=== PATIENT | male | born 1965 | race Caucasian/White ===

== ENCOUNTER 2018-02-03 17:44 | Inpatient (IN) | payer OTHER ==
[2018-02-03] VITALS (7 sets, daily range): BP systolic 121; BP diastolic 79; PULSE 82–97; RESP 20; TEMP 99.7; O2SAT 94–100
[~2018-02-03] VITALS: Ht 182.9 cm; Wt 102.0 kg
[~2018-02-03 17:44] MED LIST: SUCCINYLCHOLINE CHLORIDE 100 MG/5 ML SYRINGE IV PUSH ONE
[2018-02-03] MEDS ORDERED: PROPOFOL 1000 MG/100 ML INJ 100 ML ONE (17:52)
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
[2018-02-03 18:15] LABS: AUTOMATED NEUTROPHIL # 7.6 TH/MM3 (1.8-7.7); BASOPHIL # 0.1 TH/MM3 (0-0.2); BASOPHIL % 0.4 % (0.0-2.0); EOSINOPHIL # 0.3 TH/MM3 (0-0.4); EOSINOPHIL % 1.7 % (0.0-4.0); HEMOGLOBIN 15.7 GM/DL (13.0-17.0); LYMPH % 42.2 % (9.0-44.0); LYMPHOCYTE # 6.5 TH/MM3 (1.0-4.8); MEAN CELL VOLUME 88.6 FL (80.0-100.0); MEAN CORPUSCULAR HEMOGLOBIN 31.5 PG (27.0-34.0); MEAN CORPUSCULAR HGB CONC 35.5 % (32.0-36.0); MONO % 5.7 % (0.0-8.0); MONOCYTE # 0.9 TH/MM3 (0-0.9); PLATELET COUNT 249 TH/MM3 (150-450); RED BLOOD COUNT 4.97 MIL/MM3 (4.50-5.90); RED CELL DISTRIBUTION WIDTH 13.2 % (11.6-17.2); WHITE BLOOD COUNT 15.3 TH/MM3 (4.0-11.0)
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
[2018-02-03] MEDS: LACTATED RINGER'S 1000 ML INJ 1,000 ML IV SCH (18:25)
[2018-02-03] MEDS ORDERED: IOHEXOL 350 MG/ML 10 ML VIAL (for RAD DIAG) IVCONTRAST ONE (18:26)
[2018-02-03] MEDS ORDERED: CHLORHEXIDINE GLUCONATE 2 % 1 PACK (2 CLOTHS) TOP PRN (18:30)
[2018-02-03] MEDS ORDERED: ONDANSETRON HCL 4 MG/2 ML VIAL IV PUSH PRN (18:30)
[2018-02-03] MEDS ORDERED: SODIUM CHLORIDE 0.9% FLUSH 10 ML FLUSH IV FLUSH PRN (18:30)
[2018-02-03] MEDS ORDERED: NURSING INFORMATION XX SCH (18:30)
[2018-02-03] MEDS ORDERED: PROPOFOL 1000 MG/100 ML INJ 100 ML IV PRN (18:30)
[2018-02-03] MEDS ORDERED: fentaNYL DRIP 250 ML IV PRN (18:30)
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
[2018-02-03 18:31] LABS: PROTHROMBIN TIME - PATIENT 9.8 SEC (9.8-11.6)
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
[2018-02-03] MEDS: PROPOFOL 1000 MG/100 ML INJ 100 ML IV PRN ×2 (19:00→21:23)
[2018-02-03] MEDS: fentaNYL DRIP 250 ML IV PRN (20:00)
[2018-02-03 20:42] LABS: BANDS 1 % (0-6); LYMPHOCYTES 47 % (9-44); MONOCYTES 4 % (0-8); NEUTROPHIL # MANUAL DIFF 7.2 TH/MM3 (1.8-7.7); POLYS (SEG NEUTROPHILS) 45 % (16-70); PROMYELOCYTES 1 % (0-0)
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
[2018-02-03] MEDS: DOCUSATE SODIUM 100 MG CAP PO SCH (21:00)
[2018-02-03] MEDS: MIDAZOLAM 100 MG/NS 100 ML DRIP Premix IV PRN (22:32)
[2018-02-04] VITALS (16 sets, daily range): BP systolic 96–135; BP diastolic 63–86; PULSE 68–81; RESP 22; TEMP 99.7–100.9; O2SAT 93–100
[2018-02-04] MEDS: PROPOFOL 1000 MG/100 ML INJ 100 ML IV PRN ×8 (00:23→23:23)
[2018-02-04] MEDS: LACTATED RINGER'S 1000 ML INJ 1,000 ML IV SCH ×3 (02:25→18:53)
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
[2018-02-04] MEDS: CHLORHEXIDINE GLUCONATE 2 % 1 PACK (2 CLOTHS) TOP SCH (04:00)
[2018-02-04] MEDS: fentaNYL DRIP 250 ML IV PRN ×3 (04:44→21:39)
[2018-02-04 06:35] LABS: AUTOMATED NEUTROPHIL # 7.1 TH/MM3 (1.8-7.7); BASOPHIL # 0.1 TH/MM3 (0-0.2); BASOPHIL % 0.6 % (0.0-2.0); EOSINOPHIL # 0.1 TH/MM3 (0-0.4); HEMATOCRIT 39.6 % (39.0-51.0); LYMPH % 29.3 % (9.0-44.0); LYMPHOCYTE # 3.5 TH/MM3 (1.0-4.8); MEAN CELL VOLUME 87.4 FL (80.0-100.0); MEAN CORPUSCULAR HEMOGLOBIN 30.8 PG (27.0-34.0); MEAN CORPUSCULAR HGB CONC 35.3 % (32.0-36.0); MONO % 9.1 % (0.0-8.0); MONOCYTE # 1.1 TH/MM3 (0-0.9); PLATELET COUNT 200 TH/MM3 (150-450); RED BLOOD COUNT 4.53 MIL/MM3 (4.50-5.90); RED CELL DISTRIBUTION WIDTH 12.9 % (11.6-17.2); WHITE BLOOD COUNT 11.9 TH/MM3 (4.0-11.0)
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
[2018-02-04] MEDS ORDERED: POTASSIUM CHLOR 40 MEQ PREMIX 100 ML IV PRN ×2 (07:00)
[2018-02-04] MEDS ORDERED: MAGNESIUM SULFATE INJ 2 GM in SODIUM CHLORIDE 0.9% INJ 96 ML IV PRN (07:00)
[2018-02-04] MEDS ORDERED: POTASSIUM PHOSPHATE MONOBASIC 500 MG TAB PO PRN (07:00)
[2018-02-04] MEDS ORDERED: POTASSIUM PHOSPHATE MONOBASIC 500 MG TAB PO/TUBE PRN (07:00)
[2018-02-04] MEDS ORDERED: MAGNESIUM OXIDE 400 MG TAB PO PRN (07:00)
[2018-02-04] MEDS ORDERED: MAGNESIUM SULFATE INJ 4 GM in SODIUM CHLORIDE 0.9% INJ 92 ML IV PRN (07:00)
[2018-02-04] MEDS ORDERED: POTASSIUM CHLORIDE 25 MEQ EFFERVESCENT TAB PO PRN ×2 (07:00)
[2018-02-04 07:35] LABS: BICARBONATE 17.5 MEQ/L (21.0-32.0); CREATININE 1.1 MG/DL (0.60-1.30)
[2018-02-04 07:37] LABS: CALCIUM 7.3 MG/DL (8.5-10.1)
[2018-02-04] MEDS: CHLORHEXIDINE 0.12% (ORAL KIT) 15 ML CUP MT SCH ×2 (08:00→20:00)
[2018-02-04 08:29] LABS: CALCIUM-PROTEIN CORRECTED 7.7 MG/DL (8.5-10.1); TOTAL PROTEIN 6.4 GM/DL (6.4-8.2)
[2018-02-04] MEDS ORDERED: GLUCAGON 1 MG/ML VIAL OTHER PRN (08:45)
[2018-02-04] MEDS ORDERED: DEXTROSE 50% IN WATER 50 ML SYRINGE IV PUSH PRN (08:45)
[2018-02-04] MEDS: DOCUSATE SODIUM 100 MG CAP PO SCH (09:00)
--- NOTE | 2018-02-04 09:16 | RADRPT ---
EXAM DATE/TIME: 02/04/2018 08:56 [facility] COMPARISON: CT ABDOMEN & PELVIS W CONTRAST, February 03, 2018, 18:12. CT BRAIN W/O CONTRAST, February 03, 2018, 18:01. INDICATIONS : Follow up intracerebral hemorrhage RADIATION DOSE: 50.21 CTDIvol (mGy) MEDICAL HISTORY : Non-responsive. SURGICAL HISTORY : Non-responsive. ENCOUNTER: Subsequent ACUITY: 2 days PAIN SCALE: Non-responsive LOCATION: cranial TECHNIQUE: Multiple contiguous axial images were obtained of the head. Using automated exposure control and adj ustment of the mA and/or kV according to patient size, radiation dose was kept as low as reasonably a chievable to obtain optimal diagnostic quality images. DICOM format image data is available electro nically for review and comparison. FINDINGS: CEREBRUM: The ventricles are normal in size and configuration. The previously suspected area of punctate hemorr chitra within the right temporal region is not evident on today's examination. No significant extra-axi al fluid collections are seen. No mass lesion is identified. POSTERIOR FOSSA: The cerebellum and brainstem are intact. The 4th ventricle is midline. The cerebellopontine angle i s unremarkable. EXTRACRANIAL: The visualized portion of the orbits is intact. There is fluid filling the maxillary sinus on the rig ht. There are fractures involving the right zygoma, the posterior wall of the right maxillary sinus a nd greater wing of the sphenoid on the right. SKULL: The calvaria is intact. No evidence of skull fracture. CONCLUSION: 1. No acute intracranial hemorrhage identified on today's examination. 2. Fractures involving the right zygoma, the right maxillary sinus and greater wing of the sphenoid o n the right. There is fluid within the maxillary sinus on the right. Tiago Hartley MD on February 04, 2018 at 9:11 Board Certified Radiologist. This report was verified electronically.
[2018-02-04] MEDS ORDERED: FUROSEMIDE 20 MG/2 ML VIAL IV PUSH ONE (10:00)
[2018-02-04] MEDS ORDERED: FUROSEMIDE 40 MG/4 ML VIAL IV PUSH ONE (10:00)
[2018-02-04] MEDS: FAMOTIDINE 20 MG TAB PO SCH ×2 (10:16→21:09)
[2018-02-04] MEDS: LIDOCAINE HCL 5% PATCH T-DERMAL SCH (10:17)
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
[2018-02-04] MEDS: INSULIN ASPART SUPPLEMENTAL SCALE SQ SCH ×2 (12:00→17:59)
[2018-02-04] MEDS: BACITRACIN TOP OINT 15 GM TUBE TOPICAL SCH ×2 (13:00→21:09)
[2018-02-04] MEDS: METHOCARBAMOL 500 MG TAB PO SCH ×2 (13:04→21:09)
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
[2018-02-04] MEDS: RESP: ALBUTEROL 2.5 MG/IPRATROPIUM 0.5 MG NEB (SCH) NEB ×3 (16:48→21:09)
[2018-02-04] MEDS: MIDAZOLAM 100 MG/NS 100 ML DRIP Premix IV PRN (18:54)
[2018-02-04] MEDS: REMOVE OLD LIDOCAINE PATCH T-DERMAL SCH (21:00)
[2018-02-04] MEDS: DOCUSATE SODIUM 100 MG/10 ML UDC PO SCH (21:09)
[2018-02-04] MEDS: ENALAPRILAT 1.25 MG/ML VIAL IV PUSH PRN (22:15)
[2018-02-04] MEDS: ACETAMINOPHEN 650 MG/20.3 ML UDC PO PRN (23:24)
[2018-02-05] VITALS (17 sets, daily range): BP systolic 96–150; BP diastolic 55–78; PULSE 60–82; RESP 22; TEMP 99.3–101.1; O2SAT 91–100
[2018-02-05] MEDS: LACTATED RINGER'S 1000 ML INJ 1,000 ML IV SCH ×2 (02:25→11:05)
[2018-02-05] MEDS: PROPOFOL 1000 MG/100 ML INJ 100 ML IV PRN ×6 (02:37→22:14)
[2018-02-05] MEDS: CHLORHEXIDINE GLUCONATE 2 % 1 PACK (2 CLOTHS) TOP SCH (04:00)
[2018-02-05] MEDS: RESP: ALBUTEROL 2.5 MG/IPRATROPIUM 0.5 MG NEB (SCH) NEB ×4 (04:13→21:07)
--- NOTE | 2018-02-05 04:54 | RADRPT ---
EXAM DATE/TIME: 02/05/2018 03:59 [facility] COMPARISON: CHEST SINGLE AP, February 04, 2018, 5:41. INDICATIONS : Shortness of breath. MEDICAL HISTORY : None. SURGICAL HISTORY : None. ENCOUNTER: Subsequent ACUITY: 3 days PAIN SCORE: Non-responsive. LOCATION: chest FINDINGS: Single AP view of the chest. Nasogastric tube and endotracheal tube remain in place. Medial left lung base consolidation versus atelectasis and patchy right lung base opacity slightly increased. Small l eft pleural effusion. Cardiomediastinal silhouette unchanged. CONCLUSION: Slight increase in left greater than right lower lung zone opacity. Differential diagnosis is consoli dation versus atelectasis. Oliver Dougherty MD on February 05, 2018 at 4:50 Board Certified Radiologist. This report was verified electronically.
[2018-02-05 05:24] LABS: AUTOMATED NEUTROPHIL # 8.8 TH/MM3 (1.8-7.7); BASOPHIL % 0.3 % (0.0-2.0); EOSINOPHIL # 0.1 TH/MM3 (0-0.4); EOSINOPHIL % 1.1 % (0.0-4.0); HEMATOCRIT 36.1 % (39.0-51.0); HEMOGLOBIN 12.7 GM/DL (13.0-17.0); LYMPH % 20.9 % (9.0-44.0); LYMPHOCYTE # 2.7 TH/MM3 (1.0-4.8); MEAN CELL VOLUME 87.5 FL (80.0-100.0); MEAN CORPUSCULAR HEMOGLOBIN 30.8 PG (27.0-34.0); MEAN CORPUSCULAR HGB CONC 35.2 % (32.0-36.0); MEAN PLATELET VOLUME 9.1 FL (7.0-11.0); MONO % 9.5 % (0.0-8.0); MONOCYTE # 1.2 TH/MM3 (0-0.9); NEUT % 68.2 % (16.0-70.0); PLATELET COUNT 160 TH/MM3 (150-450); RED BLOOD COUNT 4.12 MIL/MM3 (4.50-5.90); RED CELL DISTRIBUTION WIDTH 13.2 % (11.6-17.2); WHITE BLOOD COUNT 12.9 TH/MM3 (4.0-11.0)
[2018-02-05] MEDS: METHOCARBAMOL 500 MG TAB PO SCH ×3 (05:51→21:19)
[2018-02-05 08:09] LABS: ALBUMIN 2.6 GM/DL (3.4-5.0); BICARBONATE 22.7 MEQ/L (21.0-32.0); CALCIUM 7.2 MG/DL (8.5-10.1); CALCIUM-PROTEIN CORRECTED 7.9 MG/DL (8.5-10.1); CREATININE 1.27 MG/DL (0.60-1.30); TOTAL BILIRUBIN ADULT 0.8 MG/DL (0.2-1.0); TOTAL PROTEIN 5.8 GM/DL (6.4-8.2)
[2018-02-05] MEDS: fentaNYL DRIP 250 ML IV PRN (08:40)
[2018-02-05] MEDS: SODIUM PHOSPHATE INJ 30 MMOL in SODIUM CHLOR 0.9% 250 ML INJ 240 ML IV PRN (08:41)
[2018-02-05] MEDS: BACITRACIN TOP OINT 15 GM TUBE TOPICAL SCH ×2 (08:42→20:03)
[2018-02-05] MEDS: CHLORHEXIDINE 0.12% (ORAL KIT) 15 ML CUP MT SCH ×2 (08:42→19:46)
[2018-02-05] MEDS: FAMOTIDINE 20 MG TAB PO SCH ×2 (08:53→20:02)
[2018-02-05] MEDS: DOCUSATE SODIUM 100 MG/10 ML UDC PO SCH ×2 (08:53→20:02)
[2018-02-05] MEDS: LIDOCAINE HCL 5% PATCH T-DERMAL SCH (08:53)
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
[2018-02-05] MEDS: INSULIN ASPART SUPPLEMENTAL SCALE SQ SCH ×5 (11:42→23:33)
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
[2018-02-05] MEDS: ACETAMINOPHEN 650 MG/20.3 ML UDC PO PRN (15:44)
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
[2018-02-05] MEDS: POTASSIUM CHLOR 20 MEQ PREMIX 100 ML IV PRN (18:52)
[2018-02-05] MEDS: REMOVE OLD LIDOCAINE PATCH T-DERMAL SCH (20:05)
[2018-02-05] MEDS ORDERED: FUROSEMIDE 20 MG/2 ML VIAL IV PUSH ONE (21:30)
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
[2018-02-06] VITALS (16 sets, daily range): BP systolic 119–148; BP diastolic 57–72; PULSE 58–69; RESP 22; TEMP 99.3–100.8; O2SAT 94–100
[2018-02-06] MEDS: PROPOFOL 1000 MG/100 ML INJ 100 ML IV PRN ×7 (00:30→20:30)
[2018-02-06] MEDS: fentaNYL DRIP 250 ML IV PRN ×3 (02:08→20:30)
[2018-02-06] MEDS: CHLORHEXIDINE GLUCONATE 2 % 1 PACK (2 CLOTHS) TOP SCH (03:04)
[2018-02-06] MEDS: RESP: ALBUTEROL 2.5 MG/IPRATROPIUM 0.5 MG NEB (SCH) NEB ×4 (03:28→20:05)
[2018-02-06 05:07] LABS: AUTOMATED NEUTROPHIL # 9.4 TH/MM3 (1.8-7.7); BASOPHIL % 0.3 % (0.0-2.0); EOSINOPHIL # 0.1 TH/MM3 (0-0.4); EOSINOPHIL % 0.6 % (0.0-4.0); HEMATOCRIT 34.8 % (39.0-51.0); LYMPHOCYTE # 1.7 TH/MM3 (1.0-4.8); MEAN CELL VOLUME 87.7 FL (80.0-100.0); MEAN CORPUSCULAR HEMOGLOBIN 30.3 PG (27.0-34.0); MEAN CORPUSCULAR HGB CONC 34.5 % (32.0-36.0); MEAN PLATELET VOLUME 9.1 FL (7.0-11.0); MONO % 8.1 % (0.0-8.0); PLATELET COUNT 154 TH/MM3 (150-450); RED BLOOD COUNT 3.97 MIL/MM3 (4.50-5.90); RED CELL DISTRIBUTION WIDTH 13.4 % (11.6-17.2); WHITE BLOOD COUNT 12.3 TH/MM3 (4.0-11.0)
[2018-02-06 05:17] LABS: ALBUMIN 2.5 GM/DL (3.4-5.0); AST (GOT) 138 U/L (15-37); BICARBONATE 27.6 MEQ/L (21.0-32.0); BLOOD UREA NITROGEN 9 MG/DL (7-18); CALCIUM 7.5 MG/DL (8.5-10.1); CHLORIDE 102 MEQ/L (98-107); CREATININE 1.17 MG/DL (0.60-1.30); GLOMERULAR FILTRATION RATE 65 ML/MIN (>89); GLUCOSE,RANDOM 172 MG/DL (74-106); MAGNESIUM 1.6 MG/DL (1.5-2.5); SODIUM (NA) 137 MEQ/L (136-145)
[2018-02-06 05:20] LABS: ALKALINE PHOSPHATASE 131 U/L (45-117); PHOSPHORUS 2.4 MG/DL (2.5-4.9); TOTAL BILIRUBIN ADULT 1.4 MG/DL (0.2-1.0); TOTAL PROTEIN 6.4 GM/DL (6.4-8.2)
[2018-02-06 05:25] LABS: ALT (GPT) 94 U/L (12-78)
[2018-02-06] MEDS: METHOCARBAMOL 500 MG TAB PO SCH ×3 (05:32→21:33)
[2018-02-06] MEDS: INSULIN ASPART SUPPLEMENTAL SCALE SQ SCH ×3 (06:05→16:46)
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
[2018-02-06] MEDS: CHLORHEXIDINE 0.12% (ORAL KIT) 15 ML CUP MT SCH ×2 (07:29→20:27)
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
[2018-02-06] MEDS: LIDOCAINE HCL 5% PATCH T-DERMAL SCH (07:56)
[2018-02-06] MEDS: FAMOTIDINE 20 MG TAB PO SCH ×2 (07:56→21:32)
[2018-02-06] MEDS: DOCUSATE SODIUM 100 MG/10 ML UDC PO SCH ×2 (07:56→21:33)
[2018-02-06] MEDS: BACITRACIN TOP OINT 15 GM TUBE TOPICAL SCH ×2 (07:56→21:33)
[2018-02-06] MEDS: POTASSIUM CHLOR 20 MEQ PREMIX 100 ML IV PRN (07:57)
[2018-02-06] MEDS: POTASSIUM PHOSPHATE INJ 30 MMOL in SODIUM CHLOR 0.9% 250 ML INJ 250 ML IV PRN (08:02)
[2018-02-06] MEDS: LACTATED RINGER'S 1000 ML INJ 1,000 ML IV SCH (10:46)
[2018-02-06] MEDS: ENOXAPARIN SODIUM 40 MG/0.4 ML SYRINGE SQ SCH (12:13)
[2018-02-06] MEDS: ACETAMINOPHEN 650 MG/20.3 ML UDC PO PRN (14:07)
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
[2018-02-06 19:24] LABS: MAGNESIUM 2.1 MG/DL (1.5-2.5); PHOSPHORUS 2.1 MG/DL (2.5-4.9)
[2018-02-06] MEDS: SODIUM PHOSPHATE INJ 30 MMOL in SODIUM CHLOR 0.9% 250 ML INJ 240 ML IV PRN (20:54)
[2018-02-06] MEDS: REMOVE OLD LIDOCAINE PATCH T-DERMAL SCH (21:00)
[2018-02-07] VITALS (17 sets, daily range): BP systolic 104–150; BP diastolic 57–82; PULSE 57–78; RESP 22; TEMP 99.5–101.1; O2SAT 92–99
[2018-02-07] MEDS: INSULIN ASPART SUPPLEMENTAL SCALE SQ SCH ×5 (00:05→23:41)
[2018-02-07] MEDS: PROPOFOL 1000 MG/100 ML INJ 100 ML IV PRN ×7 (00:06→17:34)
[2018-02-07] MEDS: CHLORHEXIDINE GLUCONATE 2 % 1 PACK (2 CLOTHS) TOP SCH ×2 (03:21→19:59)
[2018-02-07] MEDS: RESP: ALBUTEROL 2.5 MG/IPRATROPIUM 0.5 MG NEB (SCH) NEB ×4 (03:36→19:51)
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
[2018-02-07] MEDS: REMOVE OLD LIDOCAINE PATCH T-DERMAL SCH ×2 (04:17→21:00)
[2018-02-07 05:30] LABS: AUTOMATED NEUTROPHIL # 6.6 TH/MM3 (1.8-7.7); BASOPHIL # 0.1 TH/MM3 (0-0.2); BASOPHIL % 0.7 % (0.0-2.0); EOSINOPHIL # 0.2 TH/MM3 (0-0.4); EOSINOPHIL % 1.8 % (0.0-4.0); HEMATOCRIT 31.7 % (39.0-51.0); HEMOGLOBIN 11.3 GM/DL (13.0-17.0); LYMPH % 15.4 % (9.0-44.0); LYMPHOCYTE # 1.4 TH/MM3 (1.0-4.8); MEAN CELL VOLUME 86.7 FL (80.0-100.0); MEAN CORPUSCULAR HEMOGLOBIN 30.8 PG (27.0-34.0); MEAN CORPUSCULAR HGB CONC 35.5 % (32.0-36.0); MEAN PLATELET VOLUME 8.6 FL (7.0-11.0); MONOCYTE # 0.9 TH/MM3 (0-0.9); NEUT % 72.1 % (16.0-70.0); PLATELET COUNT 181 TH/MM3 (150-450); RED BLOOD COUNT 3.66 MIL/MM3 (4.50-5.90); RED CELL DISTRIBUTION WIDTH 13.6 % (11.6-17.2); WHITE BLOOD COUNT 9.1 TH/MM3 (4.0-11.0)
[2018-02-07] MEDS: METHOCARBAMOL 500 MG TAB PO SCH ×3 (05:57→21:23)
[2018-02-07 06:07] LABS: ALBUMIN 2.1 GM/DL (3.4-5.0); BICARBONATE 23.8 MEQ/L (21.0-32.0); CALCIUM 7.4 MG/DL (8.5-10.1); CALCIUM-PROTEIN CORRECTED 7.8 MG/DL (8.5-10.1); CREATININE 0.92 MG/DL (0.60-1.30); PHOSPHORUS 2.3 MG/DL (2.5-4.9); TOTAL BILIRUBIN ADULT 1.8 MG/DL (0.2-1.0); TOTAL PROTEIN 6.3 GM/DL (6.4-8.2)
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
[2018-02-07] MEDS: CHLORHEXIDINE 0.12% (ORAL KIT) 15 ML CUP MT SCH ×2 (07:27→20:00)
[2018-02-07] MEDS: FAMOTIDINE 20 MG TAB PO SCH ×2 (07:31→20:16)
[2018-02-07] MEDS: DOCUSATE SODIUM 100 MG/10 ML UDC PO SCH ×2 (07:31→20:16)
[2018-02-07] MEDS: LIDOCAINE HCL 5% PATCH T-DERMAL SCH (07:31)
[2018-02-07] MEDS: BACITRACIN TOP OINT 15 GM TUBE TOPICAL SCH ×2 (07:31→20:16)
[2018-02-07] MEDS: POTASSIUM PHOSPHATE INJ 30 MMOL in SODIUM CHLOR 0.9% 250 ML INJ 250 ML IV PRN ×2 (07:32→19:02)
[2018-02-07] MEDS: ENOXAPARIN SODIUM 40 MG/0.4 ML SYRINGE SQ SCH (10:27)
[2018-02-07] MEDS: MIDAZOLAM 100 MG/NS 100 ML DRIP Premix IV PRN (10:27)
[2018-02-07] MEDS ORDERED: FUROSEMIDE 40 MG/4 ML VIAL IV PUSH ONE (10:30)
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
[2018-02-07] MEDS: ACETAMINOPHEN 650 MG/20.3 ML UDC PO PRN (16:33)
[2018-02-07] MEDS: POTASSIUM CHLOR 20 MEQ PREMIX 100 ML IV PRN (17:35)
[2018-02-07 18:30] LABS: PHOSPHORUS 2.4 MG/DL (2.5-4.9)
[2018-02-07] MEDS: MAGNESIUM HYDROXIDE SUSP 30 ML CUP PO PRN (23:39)
[2018-02-07] MEDS: fentaNYL DRIP 250 ML IV PRN (23:40)
[2018-02-08] VITALS (18 sets, daily range): BP systolic 102–134; BP diastolic 57–75; PULSE 60–94; RESP 22; TEMP 100–102; O2SAT 88–98
[2018-02-08] MEDS: PROPOFOL 1000 MG/100 ML INJ 100 ML IV PRN ×4 (00:31→23:38)
[2018-02-08] MEDS: MIDAZOLAM 100 MG/NS 100 ML DRIP Premix IV PRN ×2 (02:41→14:00)
[2018-02-08] MEDS: RESP: ALBUTEROL 2.5 MG/IPRATROPIUM 0.5 MG NEB (SCH) NEB ×2 (03:08→08:21)
[2018-02-08] MEDS: ACETAMINOPHEN 650 MG/20.3 ML UDC PO PRN (05:29)
[2018-02-08] MEDS: METHOCARBAMOL 500 MG TAB PO SCH ×3 (05:29→21:56)
[2018-02-08] MEDS: INSULIN ASPART SUPPLEMENTAL SCALE SQ SCH ×4 (05:29→23:38)
[2018-02-08 07:25] LABS: PHOSPHORUS 2.5 MG/DL (2.5-4.9)
[2018-02-08] MEDS: BACITRACIN TOP OINT 15 GM TUBE TOPICAL SCH ×2 (09:00→20:33)
[2018-02-08] MEDS: DOCUSATE SODIUM 100 MG/10 ML UDC PO SCH ×2 (09:47→20:33)
[2018-02-08] MEDS: fentaNYL DRIP 250 ML IV PRN (09:47)
[2018-02-08] MEDS: FAMOTIDINE 20 MG TAB PO SCH ×2 (09:48→20:33)
[2018-02-08] MEDS: LIDOCAINE HCL 5% PATCH T-DERMAL SCH (09:53)
[2018-02-08] MEDS: CHLORHEXIDINE 0.12% (ORAL KIT) 15 ML CUP MT SCH ×2 (09:54→20:00)
[2018-02-08] MEDS: LACTULOSE SYRUP 20 GM/30 ML CUP PO SCH (10:00)
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
[2018-02-08] MEDS: ENOXAPARIN SODIUM 40 MG/0.4 ML SYRINGE SQ SCH (12:00)
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
[2018-02-08] MEDS: REMOVE OLD LIDOCAINE PATCH T-DERMAL SCH (21:00)
[2018-02-09] VITALS (21 sets, daily range): BP systolic 111–149; BP diastolic 58–96; PULSE 62–80; RESP 18–22; TEMP 99.4–102.2; O2SAT 92–100
[2018-02-09] MEDS: CHLORHEXIDINE GLUCONATE 2 % 1 PACK (2 CLOTHS) TOP SCH ×2 (01:50→19:51)
[2018-02-09] MEDS: fentaNYL DRIP 250 ML IV PRN ×2 (03:58→22:04)
[2018-02-09] MEDS: MAGNESIUM HYDROXIDE SUSP 30 ML CUP PO PRN (04:09)
[2018-02-09] MEDS: ACETAMINOPHEN 650 MG/20.3 ML UDC PO PRN ×2 (04:09→20:18)
[2018-02-09 04:50] LABS: AUTOMATED NEUTROPHIL # 6.9 TH/MM3 (1.8-7.7); BASOPHIL # 0.1 TH/MM3 (0-0.2); BASOPHIL % 0.7 % (0.0-2.0); EOSINOPHIL # 0.1 TH/MM3 (0-0.4); EOSINOPHIL % 1.2 % (0.0-4.0); HEMATOCRIT 31.1 % (39.0-51.0); LYMPH % 14.6 % (9.0-44.0); LYMPHOCYTE # 1.4 TH/MM3 (1.0-4.8); MEAN CELL VOLUME 86.8 FL (80.0-100.0); MEAN CORPUSCULAR HEMOGLOBIN 30.7 PG (27.0-34.0); MEAN CORPUSCULAR HGB CONC 35.3 % (32.0-36.0); MEAN PLATELET VOLUME 8.5 FL (7.0-11.0); NEUT % 72.5 % (16.0-70.0); PLATELET COUNT 221 TH/MM3 (150-450); RED BLOOD COUNT 3.58 MIL/MM3 (4.50-5.90); RED CELL DISTRIBUTION WIDTH 13.7 % (11.6-17.2); WHITE BLOOD COUNT 9.4 TH/MM3 (4.0-11.0)
[2018-02-09 05:21] LABS: ALKALINE PHOSPHATASE 323 U/L (45-117); TOTAL BILIRUBIN ADULT 5.3 MG/DL (0.2-1.0); TOTAL PROTEIN 6.6 GM/DL (6.4-8.2)
[2018-02-09 05:22] LABS: ALBUMIN 1.9 GM/DL (3.4-5.0); ALT (GPT) 231 U/L (12-78); AST (GOT) 252 U/L (15-37); BLOOD UREA NITROGEN 13 MG/DL (7-18); CALCIUM 8.2 MG/DL (8.5-10.1); CHLORIDE 99 MEQ/L (98-107); CREATININE 0.96 MG/DL (0.60-1.30); GLOMERULAR FILTRATION RATE 82 ML/MIN (>89); GLUCOSE,RANDOM 287 MG/DL (74-106); SODIUM (NA) 134 MEQ/L (136-145)
[2018-02-09] MEDS: INSULIN ASPART SUPPLEMENTAL SCALE SQ SCH (05:57)
[2018-02-09] MEDS: METHOCARBAMOL 500 MG TAB PO SCH ×3 (05:57→22:03)
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
[2018-02-09] MEDS: BACITRACIN TOP OINT 15 GM TUBE TOPICAL SCH ×2 (08:51→20:19)
[2018-02-09] MEDS: FAMOTIDINE 20 MG TAB PO SCH ×2 (08:51→20:19)
[2018-02-09] MEDS: LACTULOSE SYRUP 20 GM/30 ML CUP PO SCH (08:51)
[2018-02-09] MEDS: LIDOCAINE HCL 5% PATCH T-DERMAL SCH (08:51)
[2018-02-09] MEDS: DOCUSATE SODIUM 100 MG/10 ML UDC PO SCH ×2 (08:51→20:18)
[2018-02-09] MEDS: CHLORHEXIDINE 0.12% (ORAL KIT) 15 ML CUP MT SCH ×2 (08:51→20:00)
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
[2018-02-09] MEDS ORDERED: GLUCAGON 1 MG/ML VIAL OTHER PRN (10:15)
[2018-02-09] MEDS ORDERED: DEXTROSE 50% IN WATER 50 ML VIAL(D50) IV PUSH PRN (10:15)
[2018-02-09] MEDS: INSULIN DETEMIR 100 UNITS/ML VIAL SQ SCH ×2 (11:00→20:19)
[2018-02-09] MEDS: INSULIN NovoLIN REGULAR SUPPLEMENTAL SCALE SQ SCH ×3 (12:00→20:19)
[2018-02-09] MEDS: PROPOFOL 1000 MG/100 ML INJ 100 ML IV PRN ×2 (12:21→18:20)
[2018-02-09] MEDS: ENOXAPARIN SODIUM 40 MG/0.4 ML SYRINGE SQ SCH (12:22)
[2018-02-09] MEDS ORDERED: ROCURONIUM INJ 50 MG/5 ML VIAL IV PUSH ONE (14:00)
[2018-02-09] MEDS: MIDAZOLAM 100 MG/NS 100 ML DRIP Premix IV PRN (14:00)
[2018-02-09] MEDS ORDERED: ROCURONIUM INJ 50 MG/5 ML VIAL ONE (14:22)
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
[2018-02-09] MEDS ORDERED: BISACODYL 10 MG SUPP RECTAL ONE (18:30)
[2018-02-09] MEDS: REMOVE OLD LIDOCAINE PATCH T-DERMAL SCH (20:48)
[2018-02-10] VITALS (20 sets, daily range): BP systolic 108–121; BP diastolic 60–70; PULSE 64–74; RESP 18; TEMP 99.5–100.8; O2SAT 92–99
[2018-02-10] MEDS: MIDAZOLAM 100 MG/NS 100 ML DRIP Premix IV PRN ×2 (01:24→13:28)
[2018-02-10] MEDS: PROPOFOL 1000 MG/100 ML INJ 100 ML IV PRN ×6 (04:37→22:13)
--- NOTE | 2018-02-10 05:16 | RADRPT ---
EXAM DATE/TIME: 02/10/2018 04:47 [facility] COMPARISON: CT BRAIN W/O CONTRAST, February 04, 2018, 8:56. INDICATIONS : Follow up hemorrhage. RADIATION DOSE: 63.66 CTDIvol (mGy) MEDICAL HISTORY : Non-responsive. SURGICAL HISTORY : Non-responsive. ENCOUNTER: Initial ACUITY: 1 day PAIN SCALE: Non-responsive LOCATION: cranial TECHNIQUE: Multiple contiguous axial images were obtained of the head. Using automated exposure control and adj ustment of the mA and/or kV according to patient size, radiation dose was kept as low as reasonably a chievable to obtain optimal diagnostic quality images. DICOM format image data is available electro nically for review and comparison. FINDINGS: CEREBRUM: The ventricles are normal for age. No evidence of midline shift, mass lesion, hemorrhage or acute in farction. No extra-axial fluid collections are seen. POSTERIOR FOSSA: The cerebellum and brainstem are intact. The 4th ventricle is midline. The cerebellopontine angle i s unremarkable. EXTRACRANIAL: The visualized portion of the orbits is intact. Bilateral maxillary sinus disease SKULL: The calvaria is intact. Right-sided facial fractures seen. CONCLUSION: 1. No acute intracranial abnormality. 2. Bilateral maxillary sinusitis. Shlomo Benito MD on February 10, 2018 at 5:13 Board Certified Radiologist. This report was verified electronically.
--- NOTE | 2018-02-10 05:26 | RADRPT ---
EXAM DATE/TIME: 02/10/2018 05:08 [facility] COMPARISON: CHEST SINGLE AP, February 09, 2018, 5:19. INDICATIONS : Shortness of breath. MEDICAL HISTORY : Non-responsive. SURGICAL HISTORY : Non-responsive. ENCOUNTER: Subsequent ACUITY: 1 week PAIN SCORE: Non-responsive. LOCATION: Bilateral chest FINDINGS: A single view of the chest demonstrates bibasilar densities greater left lower lobe. Endotracheal tub e and nasogastric tube unchanged. No definite pneumothorax. Left-sided rib fractures. CONCLUSION: Bibasilar densities greater left lower lobe not significantly changed. No pneumothorax. Shlomo Benito MD on February 10, 2018 at 5:24 Board Certified Radiologist. This report was verified electronically.
[2018-02-10] MEDS: METHOCARBAMOL 500 MG TAB PO SCH ×3 (06:02→21:33)
[2018-02-10 06:14] LABS: BASOPHIL # 0.2 TH/MM3 (0-0.2); BASOPHIL % 1.3 % (0.0-2.0); EOSINOPHIL # 0.2 TH/MM3 (0-0.4); EOSINOPHIL % 1.8 % (0.0-4.0); HEMATOCRIT 33.9 % (39.0-51.0); HEMOGLOBIN 11.9 GM/DL (13.0-17.0); LYMPH % 15.3 % (9.0-44.0); MEAN CORPUSCULAR HEMOGLOBIN 30.3 PG (27.0-34.0); MEAN CORPUSCULAR HGB CONC 35.2 % (32.0-36.0); MEAN PLATELET VOLUME 9.8 FL (7.0-11.0); MONO % 10.8 % (0.0-8.0); MONOCYTE # 1.4 TH/MM3 (0-0.9); NEUT % 70.8 % (16.0-70.0); PLATELET COUNT 274 TH/MM3 (150-450); RED BLOOD COUNT 3.94 MIL/MM3 (4.50-5.90); RED CELL DISTRIBUTION WIDTH 13.8 % (11.6-17.2); WHITE BLOOD COUNT 12.7 TH/MM3 (4.0-11.0)
[2018-02-10 06:16] LABS: ALBUMIN 1.9 GM/DL (3.4-5.0); ALKALINE PHOSPHATASE 347 U/L (45-117); AST (GOT) 194 U/L (15-37); BICARBONATE 25.2 MEQ/L (21.0-32.0); CALCIUM 8.4 MG/DL (8.5-10.1); CHLORIDE 98 MEQ/L (98-107); CREATININE 0.85 MG/DL (0.60-1.30); GLOMERULAR FILTRATION RATE 94 ML/MIN (>89); GLUCOSE,RANDOM 215 MG/DL (74-106); SODIUM (NA) 134 MEQ/L (136-145); TOTAL BILIRUBIN ADULT 3.6 MG/DL (0.2-1.0); TOTAL PROTEIN 7.3 GM/DL (6.4-8.2)
[2018-02-10 06:23] LABS: ALT (GPT) 265 U/L (12-78); BLOOD UREA NITROGEN 15 MG/DL (7-18)
[2018-02-10] MEDS: CHLORHEXIDINE 0.12% (ORAL KIT) 15 ML CUP MT SCH ×2 (08:00→20:00)
[2018-02-10] MEDS: FAMOTIDINE 20 MG TAB PO SCH ×2 (08:06→21:32)
[2018-02-10] MEDS: DOCUSATE SODIUM 50 MG/SENNA 8.6 MG TAB PO SCH ×2 (08:06→21:32)
[2018-02-10] MEDS: MAGNESIUM HYDROXIDE SUSP 30 ML CUP PO SCH ×2 (08:07→21:32)
[2018-02-10] MEDS: INSULIN NovoLIN REGULAR SUPPLEMENTAL SCALE SQ SCH ×4 (08:08→21:36)
[2018-02-10] MEDS: BACITRACIN TOP OINT 15 GM TUBE TOPICAL SCH ×2 (08:08→21:33)
[2018-02-10] MEDS: LIDOCAINE HCL 5% PATCH T-DERMAL SCH (08:08)
[2018-02-10] MEDS: INSULIN DETEMIR 100 UNITS/ML VIAL SQ SCH ×2 (08:08→21:34)
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
[2018-02-10] MEDS: LACTULOSE SYRUP 20 GM/30 ML CUP PO SCH (09:10)
[2018-02-10] MEDS ORDERED: Vancomycin Consult Pharmacy 1 EA OTHER SCH (10:30)
[2018-02-10] MEDS ORDERED: VANCOMYCIN INJ 1,000 MG in SODIUM CHLOR 0.9% 250 ML INJ 250 ML IV SCH (10:30)
[2018-02-10] MEDS ORDERED: CEFEPIME INJ 2,000 MG in SODIUM CHLORIDE 0.9% INJ 100 ML IV SCH (11:00)
[2018-02-10] MEDS: ENOXAPARIN SODIUM 40 MG/0.4 ML SYRINGE SQ SCH (11:51)
[2018-02-10] MEDS: CEFEPIME INJ 2,000 MG in SODIUM CHLORIDE 0.9% INJ 100 ML IV SCH (12:27)
[2018-02-10] MEDS ORDERED: VANCOMYCIN INJ 1,750 MG in SODIUM CHLORID 0.9% 500 ML INJ 500 ML IV SCH ×2 (12:30→13:00)
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
[2018-02-10] MEDS: VANCOMYCIN INJ 1,750 MG in SODIUM CHLORID 0.9% 500 ML INJ 500 ML IV SCH (13:06)
[2018-02-10] MEDS: fentaNYL DRIP 250 ML IV PRN (15:40)
[2018-02-10] MEDS: RESP: ALBUTEROL 2.5 MG/IPRATROPIUM 0.5 MG NEB (PRN) NEB (20:17)
[2018-02-10] MEDS: REMOVE OLD LIDOCAINE PATCH T-DERMAL SCH (21:33)
[2018-02-11] VITALS (17 sets, daily range): BP systolic 113–156; BP diastolic 62–78; PULSE 70–112; RESP 18–34; TEMP 99.5–102; O2SAT 92–97
[2018-02-11] MEDS: CEFEPIME INJ 2,000 MG in SODIUM CHLORIDE 0.9% INJ 100 ML IV SCH ×2 (00:34→11:42)
[2018-02-11] MEDS: PROPOFOL 1000 MG/100 ML INJ 100 ML IV PRN ×9 (00:40→22:32)
[2018-02-11] MEDS: VANCOMYCIN INJ 1,750 MG in SODIUM CHLORID 0.9% 500 ML INJ 500 ML IV SCH ×2 (01:16→11:58)
[2018-02-11] MEDS: CHLORHEXIDINE GLUCONATE 2 % 1 PACK (2 CLOTHS) TOP SCH (04:00)
[2018-02-11] MEDS: ACETAMINOPHEN 650 MG/20.3 ML UDC PO PRN ×3 (04:54→23:57)
[2018-02-11] MEDS: METHOCARBAMOL 500 MG TAB PO SCH ×3 (05:03→21:42)
[2018-02-11] MEDS ORDERED: METOPROLOL TARTRATE 5 MG/5 ML VIAL IV PUSH SCH (05:30)
[2018-02-11] MEDS: METOPROLOL TARTRATE 5 MG/5 ML VIAL IV PUSH SCH ×2 (06:00→17:34)
--- NOTE | 2018-02-11 06:10 | RADRPT ---
EXAM DATE/TIME: 02/11/2018 04:44 [facility] COMPARISON: CHEST SINGLE AP, February 10, 2018, 5:08. INDICATIONS : Shortness of breath. MEDICAL HISTORY : Non-responsive. SURGICAL HISTORY : Non-responsive. ENCOUNTER: Subsequent ACUITY: 1 week PAIN SCORE: Non-responsive. LOCATION: Bilateral chest FINDINGS: A single view of the chest demonstrates bibasilar airspace disease. Heart mildly enlarged. Endotrache al tube and nasogastric tube unchanged. Osseous structures are intact. CONCLUSION: Bibasilar air space disease. Shlomo Benito MD on February 11, 2018 at 6:08 Board Certified Radiologist. This report was verified electronically.
[2018-02-11] MEDS: MIDAZOLAM 100 MG/NS 100 ML DRIP Premix IV PRN (07:09)
[2018-02-11 07:28] LABS: AUTOMATED NEUTROPHIL # 7.8 TH/MM3 (1.8-7.7); BASOPHIL # 0.1 TH/MM3 (0-0.2); BASOPHIL % 0.9 % (0.0-2.0); EOSINOPHIL # 0.2 TH/MM3 (0-0.4); EOSINOPHIL % 2.2 % (0.0-4.0); HEMATOCRIT 30.8 % (39.0-51.0); LYMPH % 13.1 % (9.0-44.0); LYMPHOCYTE # 1.4 TH/MM3 (1.0-4.8); MEAN CELL VOLUME 86.6 FL (80.0-100.0); MEAN CORPUSCULAR HGB CONC 35.8 % (32.0-36.0); MEAN PLATELET VOLUME 8.6 FL (7.0-11.0); MONO % 10.7 % (0.0-8.0); MONOCYTE # 1.1 TH/MM3 (0-0.9); NEUT % 73.1 % (16.0-70.0); PLATELET COUNT 304 TH/MM3 (150-450); RED BLOOD COUNT 3.55 MIL/MM3 (4.50-5.90); RED CELL DISTRIBUTION WIDTH 14.1 % (11.6-17.2); WHITE BLOOD COUNT 10.6 TH/MM3 (4.0-11.0)
[2018-02-11 07:53] LABS: ALBUMIN 1.8 GM/DL (3.4-5.0); ALKALINE PHOSPHATASE 353 U/L (45-117); BICARBONATE 25.9 MEQ/L (21.0-32.0); BLOOD UREA NITROGEN 14 MG/DL (7-18); CALCIUM 8.4 MG/DL (8.5-10.1); CHLORIDE 99 MEQ/L (98-107); CREATININE 0.92 MG/DL (0.60-1.30); GLOMERULAR FILTRATION RATE 86 ML/MIN (>89); SODIUM (NA) 134 MEQ/L (136-145); TOTAL BILIRUBIN ADULT 2.8 MG/DL (0.2-1.0); TOTAL PROTEIN 6.7 GM/DL (6.4-8.2)
[2018-02-11 07:58] LABS: GLUCOSE,RANDOM 249 MG/DL (74-106)
[2018-02-11 08:22] LABS: ALT (GPT) 218 U/L (12-78); AST (GOT) 155 U/L (15-37)
[2018-02-11 08:32] LABS: BANDS 14 % (0-6); LYMPHOCYTES 5 % (9-44); METAMYELOCYTES 2 % (0-1); MONOCYTES 8 % (0-8); NEUTROPHIL # MANUAL DIFF 8.7 TH/MM3 (1.8-7.7); POLYS (SEG NEUTROPHILS) 66 % (16-70)
[2018-02-11] MEDS: RESP: ALBUTEROL 2.5 MG/IPRATROPIUM 0.5 MG NEB (PRN) NEB (08:47)
[2018-02-11] MEDS: MAGNESIUM HYDROXIDE SUSP 30 ML CUP PO SCH ×2 (08:49→21:43)
[2018-02-11] MEDS: DOCUSATE SODIUM 50 MG/SENNA 8.6 MG TAB PO SCH ×2 (08:49→21:42)
[2018-02-11] MEDS: LIDOCAINE HCL 5% PATCH T-DERMAL SCH (08:49)
[2018-02-11] MEDS: LACTULOSE SYRUP 20 GM/30 ML CUP PO SCH (08:50)
[2018-02-11] MEDS: INSULIN DETEMIR 100 UNITS/ML VIAL SQ SCH ×2 (08:50→21:42)
[2018-02-11] MEDS: FAMOTIDINE 20 MG TAB PO SCH ×2 (08:50→21:44)
[2018-02-11] MEDS: INSULIN NovoLIN REGULAR SUPPLEMENTAL SCALE SQ SCH ×4 (08:50→21:41)
[2018-02-11] MEDS: BACITRACIN TOP OINT 15 GM TUBE TOPICAL SCH ×2 (08:51→21:43)
[2018-02-11] MEDS: CHLORHEXIDINE 0.12% (ORAL KIT) 15 ML CUP MT SCH ×2 (08:51→20:51)
[2018-02-11] MEDS: fentaNYL DRIP 250 ML IV PRN ×2 (09:01→22:43)
[2018-02-11] MEDS: ENOXAPARIN SODIUM 40 MG/0.4 ML SYRINGE SQ SCH (11:56)
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
[2018-02-11] MEDS: PIPERACIL-TAZO 3.375 GM PREMIX 50 ML IV SCH (17:42)
--- NOTE | 2018-02-11 18:45 | EKG ---
Date Performed: 02/10/2018 Time Performed: 15:33:38 PTAGE: 52 years EKG: Sinus rhythm Possible inferior infarct - age undetermined Abnormal ECG NO PREVIOUS TRACING DOCTOR: Jose Dover Interpretating Date/Time 02/11/2018 18:42:03
[2018-02-11] MEDS: REMOVE OLD LIDOCAINE PATCH T-DERMAL SCH (21:44)
[2018-02-12] VITALS (17 sets, daily range): BP systolic 112–133; BP diastolic 56–70; PULSE 73–96; RESP 18–30; TEMP 99–102.7; O2SAT 92–98
[2018-02-12] MEDS: PIPERACIL-TAZO 3.375 GM PREMIX 50 ML IV SCH ×4 (00:30→17:52)
[2018-02-12] MEDS: METOPROLOL TARTRATE 5 MG/5 ML VIAL IV PUSH SCH ×5 (00:30→23:41)
[2018-02-12] MEDS ORDERED: PHARMACY ORDERED LAB ONE (00:45)
[2018-02-12] MEDS: PROPOFOL 1000 MG/100 ML INJ 100 ML IV PRN ×6 (01:32→23:40)
[2018-02-12] MEDS: VANCOMYCIN INJ 1,750 MG in SODIUM CHLORID 0.9% 500 ML INJ 500 ML IV SCH ×2 (02:00→13:00)
[2018-02-12] MEDS: CHLORHEXIDINE GLUCONATE 2 % 1 PACK (2 CLOTHS) TOP SCH (04:00)
--- NOTE | 2018-02-12 04:49 | RADRPT ---
EXAM DATE/TIME: 02/12/2018 03:47 [facility] COMPARISON: CHEST SINGLE AP, February 11, 2018, 4:44. INDICATIONS : Shortness of breath. MEDICAL HISTORY : None. SURGICAL HISTORY : None. ENCOUNTER: Subsequent ACUITY: 1 week PAIN SCORE: Non-responsive. LOCATION: chest FINDINGS: Endotracheal tube and nasogastric tube are stable. Hazy bilateral pleuroparenchymal densities appear grossly unchanged. Cardiac contours are stable. CONCLUSION: No significant change Bernard Hillman MD on February 12, 2018 at 4:46 Board Certified Radiologist. This report was verified electronically.
[2018-02-12 05:44] LABS: AUTOMATED NEUTROPHIL # 11.7 TH/MM3 (1.8-7.7); BASOPHIL # 0.1 TH/MM3 (0-0.2); BASOPHIL % 0.6 % (0.0-2.0); EOSINOPHIL % 0.2 % (0.0-4.0); HEMATOCRIT 31.9 % (39.0-51.0); HEMOGLOBIN 11.4 GM/DL (13.0-17.0); LYMPH % 9.5 % (9.0-44.0); LYMPHOCYTE # 1.3 TH/MM3 (1.0-4.8); MEAN CELL VOLUME 87.3 FL (80.0-100.0); MEAN CORPUSCULAR HGB CONC 35.5 % (32.0-36.0); MEAN PLATELET VOLUME 8.1 FL (7.0-11.0); MONO % 3.8 % (0.0-8.0); MONOCYTE # 0.5 TH/MM3 (0-0.9); NEUT % 85.9 % (16.0-70.0); PLATELET COUNT 372 TH/MM3 (150-450); RED BLOOD COUNT 3.66 MIL/MM3 (4.50-5.90); RED CELL DISTRIBUTION WIDTH 13.8 % (11.6-17.2); WHITE BLOOD COUNT 13.6 TH/MM3 (4.0-11.0)
[2018-02-12] MEDS: METHOCARBAMOL 500 MG TAB PO SCH ×3 (06:02→20:38)
[2018-02-12 06:16] LABS: ALKALINE PHOSPHATASE 378 U/L (45-117); TOTAL BILIRUBIN ADULT 2.6 MG/DL (0.2-1.0)
[2018-02-12 06:58] LABS: BLOOD UREA NITROGEN 17 MG/DL (7-18); CREATININE 0.93 MG/DL (0.60-1.30); GLOMERULAR FILTRATION RATE 85 ML/MIN (>89)
[2018-02-12 06:59] LABS: ALBUMIN 1.8 GM/DL (3.4-5.0); ALT (GPT) 236 U/L (12-78); AST (GOT) 137 U/L (15-37); CALCIUM 8.1 MG/DL (8.5-10.1); GLUCOSE,RANDOM 260 MG/DL (74-106); TOTAL PROTEIN 6.8 GM/DL (6.4-8.2)
[2018-02-12 07:00] LABS: BICARBONATE 27.9 MEQ/L (21.0-32.0); CHLORIDE 100 MEQ/L (98-107); SODIUM (NA) 135 MEQ/L (136-145)
[2018-02-12] MEDS: MIDAZOLAM 100 MG/NS 100 ML DRIP Premix IV PRN (07:02)
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
[2018-02-12] MEDS: CHLORHEXIDINE 0.12% (ORAL KIT) 15 ML CUP MT SCH ×2 (08:00→20:00)
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
[2018-02-12] MEDS: BACITRACIN TOP OINT 15 GM TUBE TOPICAL SCH ×2 (09:00→20:00)
[2018-02-12] MEDS: RESP: ALBUTEROL 2.5 MG/IPRATROPIUM 0.5 MG NEB (PRN) NEB (09:13)
[2018-02-12] MEDS: FAMOTIDINE 20 MG TAB PO SCH ×2 (10:27→20:38)
[2018-02-12] MEDS: DOCUSATE SODIUM 50 MG/SENNA 8.6 MG TAB PO SCH ×2 (10:27→20:38)
[2018-02-12] MEDS: MAGNESIUM HYDROXIDE SUSP 30 ML CUP PO SCH ×2 (10:27→20:38)
[2018-02-12] MEDS: INSULIN NovoLIN REGULAR SUPPLEMENTAL SCALE SQ SCH ×4 (10:33→20:51)
[2018-02-12] MEDS: LIDOCAINE HCL 5% PATCH T-DERMAL SCH (10:33)
[2018-02-12] MEDS: ENOXAPARIN SODIUM 40 MG/0.4 ML SYRINGE SQ SCH (12:25)
[2018-02-12] MEDS: fentaNYL DRIP 250 ML IV PRN (12:37)
[2018-02-12] MEDS: RESP: ALBUTEROL 2.5 MG/IPRATROPIUM 0.5 MG NEB (SCH) NEB ×3 (13:28→19:56)
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
[2018-02-12] MEDS: cefTRIAXone INJ 2,000 MG in SODIUM CHLORIDE 0.9% INJ 100 ML IV SCH (20:38)
[2018-02-12] MEDS: LACTULOSE SYRUP 20 GM/30 ML CUP PO SCH (20:38)
[2018-02-12] MEDS: REMOVE OLD LIDOCAINE PATCH T-DERMAL SCH (20:52)
[2018-02-12] MEDS ORDERED: INSULIN DETEMIR 100 UNITS/ML VIAL SQ SCH (21:00)
[2018-02-13] VITALS (18 sets, daily range): BP systolic 101–140; BP diastolic 52–69; PULSE 69–78; RESP 10–21; TEMP 98.8–99.7; O2SAT 93–97
[2018-02-13] MEDS: RESP: ALBUTEROL 2.5 MG/IPRATROPIUM 0.5 MG NEB (SCH) NEB ×6 (00:20→22:07)
[2018-02-13] MEDS: VANCOMYCIN INJ 1,750 MG in SODIUM CHLORID 0.9% 500 ML INJ 500 ML IV SCH ×2 (01:08→13:19)
[2018-02-13] MEDS: PROPOFOL 1000 MG/100 ML INJ 100 ML IV PRN ×6 (02:28→19:32)
[2018-02-13] MEDS: CHLORHEXIDINE GLUCONATE 2 % 1 PACK (2 CLOTHS) TOP SCH (04:00)
--- NOTE | 2018-02-13 04:21 | RADRPT ---
EXAM DATE/TIME: 02/13/2018 03:47 [facility] COMPARISON: CHEST SINGLE AP, February 12, 2018, 3:47. INDICATIONS : Shortness of breath MEDICAL HISTORY : MD. Diabetes. SURGICAL HISTORY : Cardiac stent ENCOUNTER: Subsequent ACUITY: 1 week PAIN SCORE: Non-responsive. LOCATION: Bilateral chest FINDINGS: The cardiac silhouette is normal in transverse diameter. There are findings of congestive heart failu re with interstitial and alveolar opacity bilaterally. There is left lower lobe atelectasis versus pn eumonia. A small left sided effusion is present. CONCLUSION: 1. Cardiomegaly and findings of congestive heart failure. The findings are improved when compared wit h the prior exam. Chris Callahan MD on February 13, 2018 at 4:19 Board Certified Radiologist. This report was verified electronically.
[2018-02-13 04:30] LABS: AUTOMATED NEUTROPHIL # 12.5 TH/MM3 (1.8-7.7); BASOPHIL # 0.1 TH/MM3 (0-0.2); BASOPHIL % 0.5 % (0.0-2.0); EOSINOPHIL # 0.1 TH/MM3 (0-0.4); EOSINOPHIL % 0.5 % (0.0-4.0); HEMATOCRIT 30.4 % (39.0-51.0); HEMOGLOBIN 10.7 GM/DL (13.0-17.0); LYMPH % 7.7 % (9.0-44.0); LYMPHOCYTE # 1.1 TH/MM3 (1.0-4.8); MEAN CELL VOLUME 87.7 FL (80.0-100.0); MEAN CORPUSCULAR HEMOGLOBIN 30.8 PG (27.0-34.0); MEAN CORPUSCULAR HGB CONC 35.1 % (32.0-36.0); MEAN PLATELET VOLUME 8.2 FL (7.0-11.0); MONO % 4.3 % (0.0-8.0); MONOCYTE # 0.6 TH/MM3 (0-0.9); PLATELET COUNT 408 TH/MM3 (150-450); RED BLOOD COUNT 3.47 MIL/MM3 (4.50-5.90); RED CELL DISTRIBUTION WIDTH 14.2 % (11.6-17.2); WHITE BLOOD COUNT 14.3 TH/MM3 (4.0-11.0)
[2018-02-13] MEDS: METOPROLOL TARTRATE 5 MG/5 ML VIAL IV PUSH SCH ×3 (05:00→18:27)
[2018-02-13] MEDS: METHOCARBAMOL 500 MG TAB PO SCH ×3 (05:01→22:32)
[2018-02-13 05:22] LABS: ALBUMIN 1.7 GM/DL (3.4-5.0); ALKALINE PHOSPHATASE 335 U/L (45-117); ALT (GPT) 188 U/L (12-78); AST (GOT) 91 U/L (15-37); BICARBONATE 29.1 MEQ/L (21.0-32.0); BLOOD UREA NITROGEN 19 MG/DL (7-18); CALCIUM 7.5 MG/DL (8.5-10.1); CHLORIDE 99 MEQ/L (98-107); GLOMERULAR FILTRATION RATE 88 ML/MIN (>89); GLUCOSE,RANDOM 329 MG/DL (74-106); SODIUM (NA) 134 MEQ/L (136-145); TOTAL BILIRUBIN ADULT 1.6 MG/DL (0.2-1.0); TOTAL PROTEIN 6.9 GM/DL (6.4-8.2)
[2018-02-13 07:25] LABS: BANDS 32 % (0-6); LYMPHOCYTES 3 % (9-44); MONOCYTES 1 % (0-8); MYELOCYTES 1 % (0-0); NEUTROPHIL # MANUAL DIFF 13.6 TH/MM3 (1.8-7.7); POLYS (SEG NEUTROPHILS) 61 % (16-70); PROMYELOCYTES 1 % (0-0)
[2018-02-13 07:28] LABS: ACANTHOCYTES 1+ (NORMAL)
[2018-02-13] MEDS: DOCUSATE SODIUM 50 MG/SENNA 8.6 MG TAB PO SCH ×2 (09:00→20:44)
[2018-02-13] MEDS ORDERED: BISACODYL 10 MG SUPP RECTAL ONE (09:45)
[2018-02-13] MEDS ORDERED: FUROSEMIDE 40 MG/4 ML VIAL IV PUSH ONE (09:45)
[2018-02-13] MEDS: FAMOTIDINE 20 MG TAB PO SCH ×2 (10:03→20:43)
[2018-02-13] MEDS: LACTULOSE SYRUP 20 GM/30 ML CUP PO SCH ×2 (10:03→20:43)
[2018-02-13] MEDS: MAGNESIUM HYDROXIDE SUSP 30 ML CUP PO SCH ×2 (10:03→20:43)
[2018-02-13] MEDS: BACITRACIN TOP OINT 15 GM TUBE TOPICAL SCH ×2 (10:04→20:45)
[2018-02-13] MEDS: LIDOCAINE HCL 5% PATCH T-DERMAL SCH (10:05)
[2018-02-13] MEDS: INSULIN NovoLIN REGULAR SUPPLEMENTAL SCALE SQ SCH ×4 (10:06→20:44)
[2018-02-13] MEDS: CHLORHEXIDINE 0.12% (ORAL KIT) 15 ML CUP MT SCH ×2 (10:06→20:43)
[2018-02-13] MEDS: ENOXAPARIN SODIUM 40 MG/0.4 ML SYRINGE SQ SCH (11:44)
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
[2018-02-13] MEDS: MIDAZOLAM 100 MG/NS 100 ML DRIP Premix IV PRN (16:14)
[2018-02-13] MEDS: cefTRIAXone INJ 2,000 MG in SODIUM CHLORIDE 0.9% INJ 100 ML IV SCH (20:43)
[2018-02-13] MEDS: INSULIN DETEMIR 100 UNITS/ML VIAL SQ SCH (20:45)
[2018-02-13] MEDS: REMOVE OLD LIDOCAINE PATCH T-DERMAL SCH (20:45)
[2018-02-14] VITALS (17 sets, daily range): BP systolic 116–143; BP diastolic 60–74; PULSE 68–80; RESP 12–20; TEMP 98.8–99.5; O2SAT 94–100
[2018-02-14] MEDS: METOPROLOL TARTRATE 5 MG/5 ML VIAL IV PUSH SCH ×5 (00:25→23:59)
[2018-02-14] MEDS: PROPOFOL 1000 MG/100 ML INJ 100 ML IV PRN ×7 (00:26→23:27)
[2018-02-14] MEDS: fentaNYL DRIP 250 ML IV PRN ×2 (00:26→16:11)
[2018-02-14] MEDS ORDERED: PHARMACY ORDERED LAB ONE (00:45)
[2018-02-14] MEDS: VANCOMYCIN INJ 1,750 MG in SODIUM CHLORID 0.9% 500 ML INJ 500 ML IV SCH (01:29)
[2018-02-14] MEDS: RESP: ALBUTEROL 2.5 MG/IPRATROPIUM 0.5 MG NEB (SCH) NEB ×6 (01:53→20:21)
[2018-02-14] MEDS: CHLORHEXIDINE GLUCONATE 2 % 1 PACK (2 CLOTHS) TOP SCH (03:11)
--- NOTE | 2018-02-14 05:21 | RADRPT ---
EXAM DATE/TIME: 02/14/2018 04:39 [facility] COMPARISON: CHEST SINGLE AP, February 13, 2018, 3:47. INDICATIONS : Shortness of breath. MEDICAL HISTORY : OR. Diabetes. SURGICAL HISTORY : Cardiac stent ENCOUNTER: Subsequent ACUITY: 1 day PAIN SCORE: Non-responsive. LOCATION: Bilateral chest FINDINGS: The cardiac silhouette is normal in transverse diameter. Support lines and tubes are in satisfactory position. There is prominence of the central pulmonary vasculature with indistinct vascular margins c ompatible with vascular congestion but no evidence of overt failure. A small left sided effusion is p resent. CONCLUSION: 1. Cardiomegaly and findings of vascular congestion without overt failure. The findings have worsened when compared with the prior examination. Chris Callahan MD on February 14, 2018 at 5:19 Board Certified Radiologist. This report was verified electronically.
[2018-02-14 05:24] LABS: AUTOMATED NEUTROPHIL # 11.1 TH/MM3 (1.8-7.7); BASOPHIL # 0.1 TH/MM3 (0-0.2); BASOPHIL % 0.7 % (0.0-2.0); EOSINOPHIL # 0.2 TH/MM3 (0-0.4); EOSINOPHIL % 1.3 % (0.0-4.0); HEMATOCRIT 29.3 % (39.0-51.0); HEMOGLOBIN 10.1 GM/DL (13.0-17.0); LYMPH % 12.7 % (9.0-44.0); LYMPHOCYTE # 1.8 TH/MM3 (1.0-4.8); MEAN CELL VOLUME 88.7 FL (80.0-100.0); MEAN CORPUSCULAR HEMOGLOBIN 30.5 PG (27.0-34.0); MEAN CORPUSCULAR HGB CONC 34.4 % (32.0-36.0); MEAN PLATELET VOLUME 8.2 FL (7.0-11.0); MONO % 6.1 % (0.0-8.0); MONOCYTE # 0.9 TH/MM3 (0-0.9); NEUT % 79.2 % (16.0-70.0); PLATELET COUNT 441 TH/MM3 (150-450); RED CELL DISTRIBUTION WIDTH 14.1 % (11.6-17.2)
[2018-02-14 05:47] LABS: ALKALINE PHOSPHATASE 366 U/L (45-117); CREATININE 0.76 MG/DL (0.60-1.30); GLOMERULAR FILTRATION RATE 107 ML/MIN (>89); TOTAL BILIRUBIN ADULT 1.2 MG/DL (0.2-1.0); TOTAL PROTEIN 6.9 GM/DL (6.4-8.2)
[2018-02-14 05:48] LABS: ALBUMIN 1.9 GM/DL (3.4-5.0); AST (GOT) 78 U/L (15-37); BICARBONATE 32.5 MEQ/L (21.0-32.0); BLOOD UREA NITROGEN 21 MG/DL (7-18); CALCIUM 8.2 MG/DL (8.5-10.1); CHLORIDE 99 MEQ/L (98-107); GLUCOSE,RANDOM 304 MG/DL (74-106); SODIUM (NA) 137 MEQ/L (136-145)
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
[2018-02-14] MEDS: METHOCARBAMOL 500 MG TAB PO SCH ×3 (06:09→22:23)
[2018-02-14 06:11] LABS: ALT (GPT) 157 U/L (12-78)
[2018-02-14 07:26] LABS: BANDS 14 % (0-6); LYMPHOCYTES 9 % (9-44); METAMYELOCYTES 4 % (0-1); MONOCYTES 3 % (0-8); MYELOCYTES 5 % (0-0); NEUTROPHIL # MANUAL DIFF 11.8 TH/MM3 (1.8-7.7); POLYS (SEG NEUTROPHILS) 61 % (16-70)
[2018-02-14 07:27] LABS: ACANTHOCYTES 1+ (NORMAL)
[2018-02-14] MEDS: MAGNESIUM HYDROXIDE SUSP 30 ML CUP PO SCH ×2 (08:18→20:48)
[2018-02-14] MEDS: LACTULOSE SYRUP 20 GM/30 ML CUP PO SCH ×2 (08:18→20:49)
[2018-02-14] MEDS: LIDOCAINE HCL 5% PATCH T-DERMAL SCH (08:18)
[2018-02-14] MEDS: DOCUSATE SODIUM 50 MG/SENNA 8.6 MG TAB PO SCH ×2 (08:24→20:49)
[2018-02-14] MEDS: FUROSEMIDE 20 MG/2 ML VIAL IV PUSH SCH (08:24)
[2018-02-14] MEDS: CHLORHEXIDINE 0.12% (ORAL KIT) 15 ML CUP MT SCH ×2 (08:25→20:11)
[2018-02-14] MEDS: INSULIN NovoLIN REGULAR SUPPLEMENTAL SCALE SQ SCH ×4 (08:25→20:48)
[2018-02-14] MEDS: INSULIN DETEMIR 100 UNITS/ML VIAL SQ SCH ×2 (08:25→20:48)
[2018-02-14] MEDS: BACITRACIN TOP OINT 15 GM TUBE TOPICAL SCH ×2 (08:26→20:50)
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
[2018-02-14] MEDS: FAMOTIDINE 20 MG TAB PO SCH ×2 (11:44→20:49)
[2018-02-14] MEDS: ENOXAPARIN SODIUM 40 MG/0.4 ML SYRINGE SQ SCH (11:45)
[2018-02-14] MEDS: MIDAZOLAM 100 MG/NS 100 ML DRIP Premix IV PRN (12:51)
[2018-02-14] MEDS: cefTRIAXone INJ 2,000 MG in SODIUM CHLORIDE 0.9% INJ 100 ML IV SCH (20:11)
[2018-02-14] MEDS: REMOVE OLD LIDOCAINE PATCH T-DERMAL SCH (20:49)
[2018-02-15] VITALS (14 sets, daily range): BP systolic 109–150; BP diastolic 52–70; PULSE 66–84; RESP 11–23; TEMP 98.2–99.7; O2SAT 95–100
[2018-02-15] MEDS: RESP: ALBUTEROL 2.5 MG/IPRATROPIUM 0.5 MG NEB (SCH) NEB ×7 (00:54→23:14)
[2018-02-15] MEDS: PROPOFOL 1000 MG/100 ML INJ 100 ML IV PRN (03:16)
[2018-02-15] MEDS: CHLORHEXIDINE GLUCONATE 2 % 1 PACK (2 CLOTHS) TOP SCH (03:17)
[2018-02-15] MEDS: MIDAZOLAM 100 MG/NS 100 ML DRIP Premix IV PRN ×2 (03:18→20:46)
[2018-02-15 04:30] LABS: AUTOMATED NEUTROPHIL # 9.9 TH/MM3 (1.8-7.7); BASOPHIL # 0.2 TH/MM3 (0-0.2); BASOPHIL % 1.3 % (0.0-2.0); EOSINOPHIL # 0.2 TH/MM3 (0-0.4); EOSINOPHIL % 1.8 % (0.0-4.0); HEMATOCRIT 28.2 % (39.0-51.0); HEMOGLOBIN 9.6 GM/DL (13.0-17.0); LYMPH % 15.8 % (9.0-44.0); LYMPHOCYTE # 2.1 TH/MM3 (1.0-4.8); MEAN CELL VOLUME 89.1 FL (80.0-100.0); MEAN CORPUSCULAR HEMOGLOBIN 30.1 PG (27.0-34.0); MEAN CORPUSCULAR HGB CONC 33.8 % (32.0-36.0); MEAN PLATELET VOLUME 7.9 FL (7.0-11.0); MONO % 5.5 % (0.0-8.0); MONOCYTE # 0.7 TH/MM3 (0-0.9); NEUT % 75.6 % (16.0-70.0); PLATELET COUNT 449 TH/MM3 (150-450); RED BLOOD COUNT 3.17 MIL/MM3 (4.50-5.90); RED CELL DISTRIBUTION WIDTH 14.3 % (11.6-17.2); WHITE BLOOD COUNT 13.1 TH/MM3 (4.0-11.0)
[2018-02-15 04:54] LABS: ALBUMIN 1.9 GM/DL (3.4-5.0); AST (GOT) 50 U/L (15-37); BICARBONATE 34.1 MEQ/L (21.0-32.0); BLOOD UREA NITROGEN 18 MG/DL (7-18); CALCIUM 8.9 MG/DL (8.5-10.1); CHLORIDE 99 MEQ/L (98-107); CREATININE 0.76 MG/DL (0.60-1.30); GLOMERULAR FILTRATION RATE 107 ML/MIN (>89); GLUCOSE,RANDOM 257 MG/DL (74-106); SODIUM (NA) 137 MEQ/L (136-145)
[2018-02-15 04:55] LABS: ALT (GPT) 120 U/L (12-78)
[2018-02-15 04:57] LABS: ALKALINE PHOSPHATASE 324 U/L (45-117); RANDOM VANCOMYCIN 8.1 COMMENT; TOTAL BILIRUBIN ADULT 0.8 MG/DL (0.2-1.0); TOTAL PROTEIN 6.8 GM/DL (6.4-8.2)
[2018-02-15 05:26] LABS: STOMATOCYTES 2+ (NORMAL)
--- NOTE | 2018-02-15 05:44 | RADRPT ---
EXAM DATE/TIME: 02/15/2018 05:04 [facility] COMPARISON: CHEST SINGLE AP, February 14, 2018, 4:39. INDICATIONS : Short of breath. MEDICAL HISTORY : [place]. Diabetes. SURGICAL HISTORY : Cardiac stent. ENCOUNTER: Subsequent ACUITY: 2 weeks PAIN SCORE: 0/10 LOCATION: Bilateral chest FINDINGS: Mild left greater than right basilar consolidation again noted and not significantly changed. A small left pleural effusion is likely. I don't see a large effusion. No pneumothorax. Endotracheal tube tip is approximately 5 cm above the cabrera. Nasogastric tube has tip in the stomach . CONCLUSION: No significant change. Bernard Trevino MD on February 15, 2018 at 5:42 Board Certified Radiologist. This report was verified electronically.
[2018-02-15] MEDS: METOPROLOL TARTRATE 5 MG/5 ML VIAL IV PUSH SCH ×3 (06:10→17:47)
[2018-02-15] MEDS: METHOCARBAMOL 500 MG TAB PO SCH ×3 (06:10→20:46)
[2018-02-15] MEDS: fentaNYL DRIP 250 ML IV PRN ×2 (06:11→20:45)
[2018-02-15] MEDS: DOCUSATE SODIUM 50 MG/SENNA 8.6 MG TAB PO SCH ×2 (07:46→20:48)
[2018-02-15] MEDS: MAGNESIUM HYDROXIDE SUSP 30 ML CUP PO SCH ×3 (07:46→21:03)
[2018-02-15] MEDS: LACTULOSE SYRUP 20 GM/30 ML CUP PO SCH ×3 (07:46→21:03)
[2018-02-15] MEDS: INSULIN NovoLIN REGULAR SUPPLEMENTAL SCALE SQ SCH ×3 (08:00→17:47)
[2018-02-15] MEDS: CHLORHEXIDINE 0.12% (ORAL KIT) 15 ML CUP MT SCH ×2 (08:00→20:00)
[2018-02-15] MEDS: INSULIN DETEMIR 100 UNITS/ML VIAL SQ SCH ×2 (09:00→20:47)
[2018-02-15] MEDS: BACITRACIN TOP OINT 15 GM TUBE TOPICAL SCH ×2 (09:00→20:46)
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
[2018-02-15] MEDS: FAMOTIDINE 20 MG TAB PO SCH ×2 (09:32→20:46)
[2018-02-15] MEDS: LIDOCAINE HCL 5% PATCH T-DERMAL SCH (09:33)
[2018-02-15] MEDS: FUROSEMIDE 20 MG/2 ML VIAL IV PUSH SCH (09:34)
[2018-02-15] MEDS ORDERED: VANCOMYCIN 1,500 MG/NS 500 ML IV SCH ×2 (11:00)
[2018-02-15] MEDS: ENOXAPARIN SODIUM 40 MG/0.4 ML SYRINGE SQ SCH (12:07)
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
[2018-02-15] MEDS: cefTRIAXone INJ 2,000 MG in SODIUM CHLORIDE 0.9% INJ 100 ML IV SCH (20:45)
[2018-02-15] MEDS: REMOVE OLD LIDOCAINE PATCH T-DERMAL SCH (20:46)
[2018-02-15] MEDS: ARTIFICIAL TEARS OPTH OINT 3.5 APPLIC/3.5 GM TUBO EACH EYE SCH (20:47)
[2018-02-16] VITALS (18 sets, daily range): BP systolic 103–161; BP diastolic 54–76; PULSE 64–88; RESP 10–20; TEMP 98.2–99.7; O2SAT 97–100
[2018-02-16] MEDS: RESP: ALBUTEROL 2.5 MG/IPRATROPIUM 0.5 MG NEB (SCH) NEB ×3 (02:58→11:43)
[2018-02-16] MEDS: CHLORHEXIDINE GLUCONATE 2 % 1 PACK (2 CLOTHS) TOP SCH (04:00)
--- NOTE | 2018-02-16 05:36 | RADRPT ---
EXAM DATE/TIME: 02/16/2018 03:59 [facility] COMPARISON: CHEST SINGLE AP, February 15, 2018, 5:04. INDICATIONS : Respiratory distress. MEDICAL HISTORY : [place]. Diabetes. SURGICAL HISTORY : Cardiac stent. ENCOUNTER: Subsequent ACUITY: 2 weeks PAIN SCORE: Non-responsive. LOCATION: Bilateral chest FINDINGS: Left greater than right consolidation and small effusions at the bases again noted and not significan tly changed. No pneumothorax seen. Heart size stable, upper limits of normal. Endotracheal tube tip is approximately 5 cm above the cabrera. Nasogastric tube courses into the stoma ch. CONCLUSION: No significant change. Bernard Trevino MD on February 16, 2018 at 5:34 Board Certified Radiologist. This report was verified electronically.
[2018-02-16] MEDS: METOPROLOL TARTRATE 5 MG/5 ML VIAL IV PUSH SCH ×5 (05:58→17:40)
[2018-02-16] MEDS: METHOCARBAMOL 500 MG TAB PO SCH ×3 (05:58→21:25)
[2018-02-16] MEDS: INSULIN NovoLIN REGULAR SUPPLEMENTAL SCALE SQ SCH ×4 (06:00→17:41)
[2018-02-16 06:02] LABS: AUTOMATED NEUTROPHIL # 8.6 TH/MM3 (1.8-7.7); BASOPHIL # 0.1 TH/MM3 (0-0.2); EOSINOPHIL # 0.2 TH/MM3 (0-0.4); EOSINOPHIL % 1.9 % (0.0-4.0); HEMATOCRIT 28.5 % (39.0-51.0); HEMOGLOBIN 9.5 GM/DL (13.0-17.0); LYMPH % 18.2 % (9.0-44.0); LYMPHOCYTE # 2.2 TH/MM3 (1.0-4.8); MEAN CELL VOLUME 88.9 FL (80.0-100.0); MEAN CORPUSCULAR HEMOGLOBIN 29.5 PG (27.0-34.0); MEAN CORPUSCULAR HGB CONC 33.2 % (32.0-36.0); MEAN PLATELET VOLUME 7.6 FL (7.0-11.0); MONO % 7.9 % (0.0-8.0); PLATELET COUNT 513 TH/MM3 (150-450); RED BLOOD COUNT 3.21 MIL/MM3 (4.50-5.90); RED CELL DISTRIBUTION WIDTH 14.3 % (11.6-17.2); WHITE BLOOD COUNT 12.1 TH/MM3 (4.0-11.0)
[2018-02-16 06:29] LABS: ALBUMIN 2.1 GM/DL (3.4-5.0); AST (GOT) 41 U/L (15-37); BICARBONATE 35.6 MEQ/L (21.0-32.0); BLOOD UREA NITROGEN 19 MG/DL (7-18); CALCIUM 8.9 MG/DL (8.5-10.1); CHLORIDE 100 MEQ/L (98-107); CREATININE 0.67 MG/DL (0.60-1.30); GLOMERULAR FILTRATION RATE 124 ML/MIN (>89); GLUCOSE,RANDOM 203 MG/DL (74-106); SODIUM (NA) 141 MEQ/L (136-145)
[2018-02-16 06:30] LABS: ALT (GPT) 94 U/L (12-78)
[2018-02-16 06:32] LABS: ALKALINE PHOSPHATASE 300 U/L (45-117); TOTAL BILIRUBIN ADULT 0.7 MG/DL (0.2-1.0); TOTAL PROTEIN 6.8 GM/DL (6.4-8.2)
[2018-02-16 07:04] LABS: BANDS 18 % (0-6); LYMPHOCYTES 15 % (9-44); METAMYELOCYTES 1 % (0-1); MONOCYTES 3 % (0-8); NEUTROPHIL # MANUAL DIFF 9.7 TH/MM3 (1.8-7.7); POLYS (SEG NEUTROPHILS) 61 % (16-70)
[2018-02-16 07:06] LABS: TOXIC GRANULATION 1+ (NORMAL)
[2018-02-16] MEDS: CHLORHEXIDINE 0.12% (ORAL KIT) 15 ML CUP MT SCH ×2 (07:50→20:00)
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
[2018-02-16] MEDS: ARTIFICIAL TEARS OPTH OINT 3.5 APPLIC/3.5 GM TUBO EACH EYE SCH ×2 (08:40→21:00)
[2018-02-16] MEDS: BACITRACIN TOP OINT 15 GM TUBE TOPICAL SCH ×2 (08:41→21:00)
[2018-02-16] MEDS: LIDOCAINE HCL 5% PATCH T-DERMAL SCH (09:00)
[2018-02-16] MEDS: FUROSEMIDE 20 MG/2 ML VIAL IV PUSH SCH (09:00)
[2018-02-16] MEDS: MAGNESIUM HYDROXIDE SUSP 30 ML CUP PO SCH ×2 (09:00→21:25)
[2018-02-16] MEDS: LACTULOSE SYRUP 20 GM/30 ML CUP PO SCH ×2 (09:00→21:00)
[2018-02-16] MEDS: FAMOTIDINE 20 MG TAB PO SCH ×2 (09:01→21:25)
[2018-02-16] MEDS: INSULIN DETEMIR 100 UNITS/ML VIAL SQ SCH ×2 (09:01→21:00)
[2018-02-16] MEDS: DOCUSATE SODIUM 50 MG/SENNA 8.6 MG TAB PO SCH ×2 (09:01→21:25)
[2018-02-16] MEDS: MIDAZOLAM 100 MG/NS 100 ML DRIP Premix IV PRN (09:08)
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
[2018-02-16] MEDS: ENOXAPARIN SODIUM 40 MG/0.4 ML SYRINGE SQ SCH (11:49)
[2018-02-16] MEDS ORDERED: DEXMEDETOMIDINE INJ 200 MCG in SODIUM CHLORIDE 0.9% INJ 50 ML IV PRN (12:00)
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
[2018-02-16] MEDS: fentaNYL DRIP 250 ML IV PRN (12:32)
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
[2018-02-16] MEDS: DEXMEDETOMIDINE INJ 1,000 MCG in SODIUM CHLOR 0.9% 250 ML INJ 240 ML IV PRN (16:44)
[2018-02-16] MEDS: REMOVE OLD LIDOCAINE PATCH T-DERMAL SCH (21:00)
[2018-02-16] MEDS: cefTRIAXone INJ 2,000 MG in SODIUM CHLORIDE 0.9% INJ 100 ML IV SCH (21:26)
[2018-02-16] MEDS ORDERED: PHARMACY ORDERED LAB ONE (22:45)
[2018-02-17] VITALS (17 sets, daily range): BP systolic 103–114; BP diastolic 55–61; PULSE 54–68; RESP 10–18; TEMP 98.6–99.1; O2SAT 94–100
[2018-02-17] MEDS: CHLORHEXIDINE GLUCONATE 2 % 1 PACK (2 CLOTHS) TOP SCH (03:38)
[2018-02-17] MEDS: DEXMEDETOMIDINE INJ 1,000 MCG in SODIUM CHLOR 0.9% 250 ML INJ 240 ML IV PRN (03:44)
--- NOTE | 2018-02-17 05:39 | RADRPT ---
EXAM DATE/TIME: 02/17/2018 04:54 [facility] COMPARISON: CHEST SINGLE AP, February 16, 2018, 3:59. INDICATIONS : Shortness of breath. MEDICAL HISTORY : [place]. Diabetes. SURGICAL HISTORY : Coronary artery stent. ENCOUNTER: Subsequent ACUITY: 2 weeks PAIN SCORE: Non-responsive. LOCATION: Bilateral chest FINDINGS: Mild bibasilar consolidation again noted, not significantly changed. No pneumothorax seen. Heart size stable, upper limits of normal. Endotracheal tube tip is approximately 4 cm above the cabrera. Nasogastric tube courses into the stoma ch. CONCLUSION: No significant change mild bibasilar consolidation. Bernard Trevino MD on February 17, 2018 at 5:37 Board Certified Radiologist. This report was verified electronically.
[2018-02-17] MEDS: INSULIN NovoLIN REGULAR SUPPLEMENTAL SCALE SQ SCH ×4 (06:00→18:36)
[2018-02-17] MEDS: METHOCARBAMOL 500 MG TAB PO SCH ×3 (06:00→21:07)
[2018-02-17] MEDS: METOPROLOL TARTRATE 5 MG/5 ML VIAL IV PUSH SCH ×2 (06:00)
[2018-02-17 06:18] LABS: AUTOMATED NEUTROPHIL # 9.5 TH/MM3 (1.8-7.7); BASOPHIL % 0.3 % (0.0-2.0); EOSINOPHIL # 0.2 TH/MM3 (0-0.4); EOSINOPHIL % 1.9 % (0.0-4.0); HEMATOCRIT 27.2 % (39.0-51.0); LYMPH % 18.3 % (9.0-44.0); LYMPHOCYTE # 2.4 TH/MM3 (1.0-4.8); MEAN CELL VOLUME 89.6 FL (80.0-100.0); MEAN CORPUSCULAR HEMOGLOBIN 29.7 PG (27.0-34.0); MEAN CORPUSCULAR HGB CONC 33.1 % (32.0-36.0); MEAN PLATELET VOLUME 7.9 FL (7.0-11.0); MONOCYTE # 0.9 TH/MM3 (0-0.9); NEUT % 72.5 % (16.0-70.0); PLATELET COUNT 489 TH/MM3 (150-450); RED BLOOD COUNT 3.04 MIL/MM3 (4.50-5.90); RED CELL DISTRIBUTION WIDTH 14.1 % (11.6-17.2); WHITE BLOOD COUNT 13.1 TH/MM3 (4.0-11.0)
[2018-02-17] MEDS: MIDAZOLAM 100 MG/NS 100 ML DRIP Premix IV PRN ×2 (06:26→21:09)
[2018-02-17 06:31] LABS: ALBUMIN 2.2 GM/DL (3.4-5.0); AST (GOT) 36 U/L (15-37); BICARBONATE 34.6 MEQ/L (21.0-32.0); BLOOD UREA NITROGEN 22 MG/DL (7-18); CALCIUM 9.4 MG/DL (8.5-10.1); CHLORIDE 103 MEQ/L (98-107); CREATININE 0.66 MG/DL (0.60-1.30); GLOMERULAR FILTRATION RATE 126 ML/MIN (>89); GLUCOSE,RANDOM 206 MG/DL (74-106); SODIUM (NA) 143 MEQ/L (136-145)
[2018-02-17 06:32] LABS: ALT (GPT) 75 U/L (12-78)
[2018-02-17 06:34] LABS: ALKALINE PHOSPHATASE 279 U/L (45-117); TOTAL BILIRUBIN ADULT 0.7 MG/DL (0.2-1.0)
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
[2018-02-17] MEDS: MAGNESIUM HYDROXIDE SUSP 30 ML CUP PO SCH ×2 (09:24→21:00)
[2018-02-17] MEDS: ARTIFICIAL TEARS OPTH OINT 3.5 APPLIC/3.5 GM TUBO EACH EYE SCH ×2 (09:24→21:08)
[2018-02-17] MEDS: CHLORHEXIDINE 0.12% (ORAL KIT) 15 ML CUP MT SCH ×2 (09:24→21:13)
[2018-02-17] MEDS: LACTULOSE SYRUP 20 GM/30 ML CUP PO SCH ×2 (09:24→21:00)
[2018-02-17] MEDS: INSULIN DETEMIR 100 UNITS/ML VIAL SQ SCH ×2 (09:28→21:14)
[2018-02-17] MEDS: FAMOTIDINE 20 MG TAB PO SCH ×2 (09:28→21:07)
[2018-02-17] MEDS: DOCUSATE SODIUM 50 MG/SENNA 8.6 MG TAB PO SCH ×2 (09:28→21:07)
[2018-02-17] MEDS: BACITRACIN TOP OINT 15 GM TUBE TOPICAL SCH ×2 (09:29→21:07)
[2018-02-17] MEDS: LIDOCAINE HCL 5% PATCH T-DERMAL SCH (09:29)
[2018-02-17] MEDS: ENOXAPARIN SODIUM 40 MG/0.4 ML SYRINGE SQ SCH (11:22)
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
[2018-02-17] MEDS: REMOVE OLD LIDOCAINE PATCH T-DERMAL SCH (21:00)
[2018-02-17] MEDS: cefTRIAXone INJ 2,000 MG in SODIUM CHLORIDE 0.9% INJ 100 ML IV SCH (21:14)
[2018-02-18] VITALS (19 sets, daily range): BP systolic 101–142; BP diastolic 59–75; PULSE 50–102; RESP 12–19; TEMP 98.2–99.1; O2SAT 92–99
[2018-02-18] MEDS: INSULIN NovoLIN REGULAR SUPPLEMENTAL SCALE SQ SCH ×4 (01:24→18:11)
[2018-02-18] MEDS: CHLORHEXIDINE GLUCONATE 2 % 1 PACK (2 CLOTHS) TOP SCH (04:00)
[2018-02-18] MEDS: METHOCARBAMOL 500 MG TAB PO SCH ×3 (06:19→22:39)
[2018-02-18 06:30] LABS: AUTOMATED NEUTROPHIL # 7.9 TH/MM3 (1.8-7.7); BASOPHIL # 0.1 TH/MM3 (0-0.2); BASOPHIL % 0.5 % (0.0-2.0); EOSINOPHIL # 0.3 TH/MM3 (0-0.4); EOSINOPHIL % 2.3 % (0.0-4.0); HEMATOCRIT 27.2 % (39.0-51.0); HEMOGLOBIN 8.8 GM/DL (13.0-17.0); LYMPH % 18.6 % (9.0-44.0); LYMPHOCYTE # 2.1 TH/MM3 (1.0-4.8); MEAN CELL VOLUME 89.9 FL (80.0-100.0); MEAN CORPUSCULAR HEMOGLOBIN 29.3 PG (27.0-34.0); MEAN CORPUSCULAR HGB CONC 32.6 % (32.0-36.0); MEAN PLATELET VOLUME 8.1 FL (7.0-11.0); MONOCYTE # 0.9 TH/MM3 (0-0.9); NEUT % 70.6 % (16.0-70.0); PLATELET COUNT 509 TH/MM3 (150-450); RED BLOOD COUNT 3.02 MIL/MM3 (4.50-5.90); RED CELL DISTRIBUTION WIDTH 14.4 % (11.6-17.2); WHITE BLOOD COUNT 11.1 TH/MM3 (4.0-11.0)
[2018-02-18 06:47] LABS: BICARBONATE 36.7 MEQ/L (21.0-32.0); CALCIUM 9.1 MG/DL (8.5-10.1); CREATININE 0.67 MG/DL (0.60-1.30)
[2018-02-18] MEDS: CHLORHEXIDINE 0.12% (ORAL KIT) 15 ML CUP MT SCH ×2 (08:00→20:37)
[2018-02-18] MEDS: BACITRACIN TOP OINT 15 GM TUBE TOPICAL SCH ×2 (09:00→20:37)
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
[2018-02-18] MEDS: INSULIN DETEMIR 100 UNITS/ML VIAL SQ SCH ×2 (10:24→20:34)
[2018-02-18] MEDS: LIDOCAINE HCL 5% PATCH T-DERMAL SCH (10:25)
[2018-02-18] MEDS: FAMOTIDINE 20 MG TAB PO SCH ×2 (10:25→20:33)
[2018-02-18] MEDS: DOCUSATE SODIUM 50 MG/SENNA 8.6 MG TAB PO SCH ×2 (10:25→20:33)
[2018-02-18] MEDS: ARTIFICIAL TEARS OPTH OINT 3.5 APPLIC/3.5 GM TUBO EACH EYE SCH ×2 (10:26→20:36)
--- NOTE | 2018-02-18 11:08 | PD.WCN.NOT ---
Wound Consult Description: Patient seen on with Doctor Thakur for wound care physician consult Communicated with: MARIA T Downey and Doctor Thakur Recommendation: Please follow orders as written by Doctor Thakur Additional Information: Patient seen on for wound care physician consult above the knee sacral area with Doctor Thakur.Patient is intubated, but able to follow some commands. Patient was positioned with total assistance to R side for wound assessment. Patient noted with scattered lesions to bilateral buttocks with macerated weakened skin that is non blanchable to gluteal cleft with small opening. Skin surrounding macerated weakened skin to gluteal cleft is firm, erythematous non blanchable from 6 to 12 o'clock.Etiology appears to be moisture, friction, and pressure. Macerated weakened skin presents like a deflated bulla measuring ~4cm x ~1cm.Applied Calazime skin protectant paste in a thick layer to Gluteal cleft and was left open to air. Patient is difficult to turn to due to body habitus. Will need low airloss bed to due to body habitus and stage 2 pressure injury forming over coccyx area. Marta Ibarra [facility] Feb 18, 2018 11:08
[2018-02-18] MEDS: ENOXAPARIN SODIUM 40 MG/0.4 ML SYRINGE SQ SCH (11:59)
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
[2018-02-18] MEDS: DEXMEDETOMIDINE INJ 1,000 MCG in SODIUM CHLOR 0.9% 250 ML INJ 240 ML IV PRN (14:18)
[2018-02-18] MEDS ORDERED: MIDAZOLAM HCL 5 MG/ML VIAL (1 ML) ONE (15:25)
[2018-02-18] MEDS ORDERED: MIDAZOLAM HCL 5 MG/ML VIAL (1 ML) IV ONE (15:30)
[2018-02-18] MEDS ORDERED: LORazepam 1 MG TAB PO SCH (16:00)
[2018-02-18] MEDS: VALPROIC ACID SYRUP 250 MG/5 ML UDC PO SCH (18:11)
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
[2018-02-18] MEDS: fentaNYL DRIP 250 ML IV PRN (19:57)
[2018-02-18] MEDS: MIDAZOLAM 100 MG/NS 100 ML DRIP Premix IV PRN (19:58)
[2018-02-18] MEDS: cefTRIAXone INJ 2,000 MG in SODIUM CHLORIDE 0.9% INJ 100 ML IV SCH (20:34)
[2018-02-18] MEDS: REMOVE OLD LIDOCAINE PATCH T-DERMAL SCH (21:00)
[2018-02-18] MEDS: LORazepam 2 MG/ML VIAL IV PUSH SCH (21:20)
[2018-02-18] MEDS ORDERED: ROCURONIUM INJ 50 MG/5 ML VIAL ONE (22:50)
[2018-02-18] MEDS ORDERED: ROCURONIUM INJ 100 MG/10 ML VIAL IV ONE (23:00)
--- NOTE | 2018-02-18 23:29 | RADRPT ---
EXAM DATE/TIME: 02/18/2018 23:01 [place] COMPARISON: CHEST SINGLE AP, February 17, 2018, 4:54. INDICATIONS : Respiratory disease. MEDICAL HISTORY : CA. Diabetes. SURGICAL HISTORY : Coronary artery stent. ENCOUNTER: Subsequent ACUITY: 2 weeks PAIN SCORE: Non-responsive. LOCATION: Bilateral chest FINDINGS: A single portable frontal view of the chest shows the tip of the endotracheal tube 5 cm proximal to t he cabrera. Worsening bibasilar pulmonary infiltrates. No discrete effusions. Heart is normal in size. Nasogastric tube courses off the inferior margin of the film. CONCLUSION: Worsening bibasilar pulmonary infiltrates. Timmy Russell Jr., MD on February 18, 2018 at 23:27 Board Certified Radiologist. This report was verified electronically.
[2018-02-18] MEDS: PROPOFOL 1000 MG/100 ML INJ 100 ML IV PRN (23:31)
[2018-02-19] VITALS (16 sets, daily range): BP systolic 97–137; BP diastolic 48–69; PULSE 50–70; RESP 11–20; TEMP 97.7–99; O2SAT 95–99
--- NOTE | 2018-02-19 00:04 | PD.OP ---
Operative Report Multitrauma Postoperative Diagnosis: Multitrauma Procedure: Femoral Arterial Line insertion Anesthesia: none Surgeon: Renate Mercer [employer] Associate(s): none Operation and Findings: Attempted radial arterial line insertion not successful. Technique: Right groin area sterilely prepped and draped -Using the femoral pulse as landmark-the femoral artery easily punctured and a femoral line inserted -with good wave form. Renate Mercer MD Feb 19, 2018 00:04
[2018-02-19] MEDS: INSULIN NovoLIN REGULAR SUPPLEMENTAL SCALE SQ SCH ×4 (01:50→17:12)
[2018-02-19] MEDS: PROPOFOL 1000 MG/100 ML INJ 100 ML IV PRN ×5 (02:44→22:09)
[2018-02-19] MEDS: CHLORHEXIDINE GLUCONATE 2 % 1 PACK (2 CLOTHS) TOP SCH (04:00)
[2018-02-19 05:48] LABS: BICARBONATE 34.9 MEQ/L (21.0-32.0); CALCIUM 8.7 MG/DL (8.5-10.1); CREATININE 0.64 MG/DL (0.60-1.30)
[2018-02-19 05:52] LABS: AUTOMATED NEUTROPHIL # 9.3 TH/MM3 (1.8-7.7); BASOPHIL # 0.1 TH/MM3 (0-0.2); BASOPHIL % 0.6 % (0.0-2.0); EOSINOPHIL # 0.2 TH/MM3 (0-0.4); EOSINOPHIL % 1.4 % (0.0-4.0); HEMATOCRIT 25.6 % (39.0-51.0); HEMOGLOBIN 8.4 GM/DL (13.0-17.0); LYMPH % 19.8 % (9.0-44.0); LYMPHOCYTE # 2.6 TH/MM3 (1.0-4.8); MEAN CELL VOLUME 89.3 FL (80.0-100.0); MEAN CORPUSCULAR HEMOGLOBIN 29.3 PG (27.0-34.0); MEAN CORPUSCULAR HGB CONC 32.8 % (32.0-36.0); MEAN PLATELET VOLUME 7.8 FL (7.0-11.0); MONO % 7.3 % (0.0-8.0); MONOCYTE # 0.9 TH/MM3 (0-0.9); NEUT % 70.9 % (16.0-70.0); PLATELET COUNT 515 TH/MM3 (150-450); RED BLOOD COUNT 2.87 MIL/MM3 (4.50-5.90); WHITE BLOOD COUNT 13.1 TH/MM3 (4.0-11.0)
[2018-02-19] MEDS: LORazepam 2 MG/ML VIAL IV PUSH SCH ×2 (05:54→06:00)
[2018-02-19] MEDS: MIDAZOLAM 100 MG/NS 100 ML DRIP Premix IV PRN (05:54)
[2018-02-19] MEDS: METHOCARBAMOL 500 MG TAB PO SCH ×3 (05:55→21:11)
[2018-02-19] MEDS: CHLORHEXIDINE 0.12% (ORAL KIT) 15 ML CUP MT SCH ×2 (08:00→21:09)
--- NOTE | 2018-02-19 08:18 | HHI.PR ---
Neuropsych Emotional Emotional: UnabletoAssess: Emotional, Anxious/Fearful, Depressed/Sad, Hostile/ Resentful, Irritable/Angry/Frustrate, Labile, Constricted/Blunted Behavior Behavior: Mild: Impulsive/Agitated, Unable to Asses: Behavior, Coping/ Acceptance, Cooperative w/ Treatment, Motivation, Frustration Tolerance/[place], Suicidal/Homicidal Risk Cognitive Cognitive: Unable to Asses: Cognitive, Attention/Concentration, Confused/ Orientation, Insight/Awareness, Judgement/Problem-Solving, Memory Psychosocial Psychosocial: Intact: Psychosocial, Family/Other Adjustment, Realistic Expectation, Unable to Asses: Self-Esteem/Confidence Progress Notes/Response to Tx Contents of Sessions: Adjustment Time with Patient: 15 minutes Premorbid psychological status Premorbid Cognitive, Emotional and Behavioral Status: Tenuous. The patient has high school years of education and a solid work history prior to this injury. The patient has no prior psychiatric difficulties, as described above. Substance abuse history includes prior pain pill addiction. Behavioral Reactions of Patient and Family/Support System: Tenuous. The patients family is experiencing ongoing issues of adjustment given the nature of the injury, and this aspect of recovery will require ongoing monitoring. Emotional/Behavioral Status of Patient and Family/Support System: Tenuous. Pertinent issues, if appropriate to this patients clinical care, are described in detail above. Maximizing acute care outcome It is recommended that the patient be monitored for emergent behavioral impulsivity as the medical condition evolves. This patients neuropathological challenges may limit his rehabilitation potential going forward, and these challenges will require specialized therapeutic skills to maximize outcome. Additionally, the patients family is experiencing ongoing issues of adjustment given the traumatic nature of the injury, and they will benefit from ongoing psychological assistance. I spoke at length with the patient's this morning. At this point in the recovery process, the patient does not have cognitive capacity as the patient is unable to understand a situation and its likely consequences, nor is he able to manipulate information rationally. Cognitive capacity will be assessed throughout the recovery process. Anticipated Problems Ongoing areas of concern will include behavioral impulsivity, lack of insight and judgment, which is expected to improve with time and treatment. Presently , the patient is critically ill. Given the severity of the patient's injuries it is my clinical opinion that this patient will be unable to return to any type of productive employment for at least one year, perhaps longer and likely never. This patient is not considered safe to discharge home without supervision. Treatment Plan This clinician will continue to follow with you throughout the course of this patients critical care treatment, and I will be available to meet with the patients family/support system to facilitate their understanding and the ongoing care of their family member. The goals of neuropsychological intervention shall be both educational and supportive to the family/support system as is deemed clinically appropriate. [facility] Level: IV:Confused/Agitated-maximal assist Impression 52 year old [place] s/p mild [place] [facility] [place] Diagnosis: (1) Mild major neurocognitive disorder due to traumatic brain injury with behavioral disturbance Progress Note Narrative PTD 16. The patient has had periods of hypo/hyper arousal consistent with ICU delirium r/o agitation 2T TBI, and Trauma team consensus is to start VPA 250 TID , and he also required Ativan PRN, consider starting seroquel 50 BID and a Haldol PRN, unless medically contraindicated. He is [place] IV. Long discussion with yesterday. I will follow. Peter Bah PhD Feb 19, 2018 8:18 am
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
[2018-02-19] MEDS ORDERED: FUROSEMIDE 40 MG/4 ML VIAL ONE (09:05)
[2018-02-19] MEDS: FAMOTIDINE 20 MG TAB PO SCH ×2 (09:40→21:10)
[2018-02-19] MEDS: VALPROIC ACID SYRUP 250 MG/5 ML UDC PO SCH ×3 (09:40→17:05)
[2018-02-19] MEDS: HYDROCORTISONE 1% OINT 30 GM TUBE TOPICAL PRN ×2 (09:40→18:08)
[2018-02-19] MEDS: DOCUSATE SODIUM 50 MG/SENNA 8.6 MG TAB PO SCH ×2 (09:40→21:10)
[2018-02-19] MEDS: LIDOCAINE HCL 5% PATCH T-DERMAL SCH (09:53)
[2018-02-19] MEDS: BACITRACIN TOP OINT 15 GM TUBE TOPICAL SCH ×2 (09:53→21:11)
[2018-02-19] MEDS: ARTIFICIAL TEARS OPTH OINT 3.5 APPLIC/3.5 GM TUBO EACH EYE SCH ×2 (09:53→21:10)
[2018-02-19] MEDS: INSULIN DETEMIR 100 UNITS/ML VIAL SQ SCH ×2 (09:55→21:10)
[2018-02-19] MEDS: fentaNYL DRIP 250 ML IV PRN (12:00)
[2018-02-19] MEDS: ENOXAPARIN SODIUM 40 MG/0.4 ML SYRINGE SQ SCH (12:20)
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
[2018-02-19] MEDS: cefTRIAXone INJ 2,000 MG in SODIUM CHLORIDE 0.9% INJ 100 ML IV SCH (21:09)
[2018-02-19] MEDS: REMOVE OLD LIDOCAINE PATCH T-DERMAL SCH (21:10)
[2018-02-20] VITALS (18 sets, daily range): BP systolic 113–159; BP diastolic 48–81; PULSE 56–70; RESP 11–16; TEMP 98.6–99.4; O2SAT 94–100
[2018-02-20] MEDS: PROPOFOL 1000 MG/100 ML INJ 100 ML IV PRN ×8 (00:38→23:09)
[2018-02-20] MEDS: fentaNYL DRIP 250 ML IV PRN ×2 (03:38→17:50)
[2018-02-20] MEDS: CHLORHEXIDINE GLUCONATE 2 % 1 PACK (2 CLOTHS) TOP SCH (04:00)
--- NOTE | 2018-02-20 04:00 | RADRPT ---
EXAM DATE/TIME: 02/20/2018 03:27 [facility] COMPARISON: CHEST SINGLE AP, February 18, 2018, 23:01. INDICATIONS : Infiltrate. Respiratory disease. MEDICAL HISTORY : MS. Diabetes. SURGICAL HISTORY : Coronary artery stent. ENCOUNTER: Subsequent ACUITY: 2 weeks PAIN SCORE: Non-responsive. LOCATION: Bilateral chest FINDINGS: A single portable frontal view of the chest shows considerable improvement. Majority of the ultrasoun d resolved with the exception of residual infiltrate within the medial bases bilaterally. No effusion s. Heart is normal in size. The endotracheal tube 3 cm proximal to cabrera. Nasogastric tube noted. Le ft rib fractures without pneumothorax. CONCLUSION: Significant improvement in the bilateral pulmonary infiltrates. Timmy Russell Jr., MD on February 20, 2018 at 3:58 Board Certified Radiologist. This report was verified electronically.
[2018-02-20 04:35] LABS: BICARBONATE 34.8 MEQ/L (21.0-32.0); CALCIUM 8.3 MG/DL (8.5-10.1); CREATININE 0.66 MG/DL (0.60-1.30)
[2018-02-20 04:46] LABS: AUTOMATED NEUTROPHIL # 5.3 TH/MM3 (1.8-7.7); BASOPHIL # 0.1 TH/MM3 (0-0.2); BASOPHIL % 1.1 % (0.0-2.0); EOSINOPHIL # 0.3 TH/MM3 (0-0.4); EOSINOPHIL % 3.8 % (0.0-4.0); HEMOGLOBIN 8.7 GM/DL (13.0-17.0); LYMPH % 26.6 % (9.0-44.0); LYMPHOCYTE # 2.4 TH/MM3 (1.0-4.8); MEAN CELL VOLUME 89.2 FL (80.0-100.0); MEAN CORPUSCULAR HEMOGLOBIN 29.9 PG (27.0-34.0); MEAN CORPUSCULAR HGB CONC 33.5 % (32.0-36.0); MEAN PLATELET VOLUME 8.1 FL (7.0-11.0); MONO % 8.7 % (0.0-8.0); MONOCYTE # 0.8 TH/MM3 (0-0.9); NEUT % 59.8 % (16.0-70.0); PLATELET COUNT 508 TH/MM3 (150-450); RED BLOOD COUNT 2.91 MIL/MM3 (4.50-5.90); RED CELL DISTRIBUTION WIDTH 14.6 % (11.6-17.2); WHITE BLOOD COUNT 8.9 TH/MM3 (4.0-11.0)
[2018-02-20] MEDS: METHOCARBAMOL 500 MG TAB PO SCH ×3 (05:53→21:23)
[2018-02-20] MEDS: INSULIN NovoLIN REGULAR SUPPLEMENTAL SCALE SQ SCH ×4 (05:54→17:51)
[2018-02-20] MEDS: CHLORHEXIDINE 0.12% (ORAL KIT) 15 ML CUP MT SCH ×2 (08:00→20:00)
[2018-02-20] MEDS: INSULIN DETEMIR 100 UNITS/ML VIAL SQ SCH ×2 (09:00→20:21)
[2018-02-20] MEDS: BACITRACIN TOP OINT 15 GM TUBE TOPICAL SCH ×2 (09:00→21:00)
[2018-02-20] MEDS: ARTIFICIAL TEARS OPTH OINT 3.5 APPLIC/3.5 GM TUBO EACH EYE SCH ×2 (09:00→20:20)
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
[2018-02-20] MEDS: FAMOTIDINE 20 MG TAB PO SCH ×2 (09:20→20:20)
[2018-02-20] MEDS: LIDOCAINE HCL 5% PATCH T-DERMAL SCH (09:20)
[2018-02-20] MEDS: DOCUSATE SODIUM 50 MG/SENNA 8.6 MG TAB PO SCH ×2 (09:20→20:20)
[2018-02-20] MEDS: VALPROIC ACID SYRUP 250 MG/5 ML UDC PO SCH ×3 (09:20→17:50)
[2018-02-20] MEDS: ENOXAPARIN SODIUM 40 MG/0.4 ML SYRINGE SQ SCH (12:36)
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
[2018-02-20] MEDS: MIDAZOLAM 100 MG/NS 100 ML DRIP Premix IV PRN (17:50)
[2018-02-20] MEDS: cefTRIAXone INJ 2,000 MG in SODIUM CHLORIDE 0.9% INJ 100 ML IV SCH (20:20)
[2018-02-20] MEDS: REMOVE OLD LIDOCAINE PATCH T-DERMAL SCH (21:00)
[2018-02-21] VITALS (18 sets, daily range): BP systolic 103–130; BP diastolic 52–67; PULSE 56–82; RESP 10–21; TEMP 99–100; O2SAT 93–100
[2018-02-21] MEDS: PROPOFOL 1000 MG/100 ML INJ 100 ML IV PRN ×7 (02:12→18:06)
[2018-02-21] MEDS: CHLORHEXIDINE GLUCONATE 2 % 1 PACK (2 CLOTHS) TOP SCH ×2 (04:00→20:57)
[2018-02-21 04:55] LABS: AUTOMATED NEUTROPHIL # 5.1 TH/MM3 (1.8-7.7); BASOPHIL # 0.1 TH/MM3 (0-0.2); BASOPHIL % 0.8 % (0.0-2.0); EOSINOPHIL # 0.3 TH/MM3 (0-0.4); EOSINOPHIL % 3.7 % (0.0-4.0); HEMATOCRIT 25.1 % (39.0-51.0); HEMOGLOBIN 8.6 GM/DL (13.0-17.0); LYMPH % 25.4 % (9.0-44.0); LYMPHOCYTE # 2.1 TH/MM3 (1.0-4.8); MEAN CELL VOLUME 88.4 FL (80.0-100.0); MEAN CORPUSCULAR HEMOGLOBIN 30.3 PG (27.0-34.0); MEAN CORPUSCULAR HGB CONC 34.2 % (32.0-36.0); MEAN PLATELET VOLUME 7.5 FL (7.0-11.0); MONO % 9.2 % (0.0-8.0); MONOCYTE # 0.8 TH/MM3 (0-0.9); NEUT % 60.9 % (16.0-70.0); PLATELET COUNT 464 TH/MM3 (150-450); RED BLOOD COUNT 2.83 MIL/MM3 (4.50-5.90); RED CELL DISTRIBUTION WIDTH 14.3 % (11.6-17.2); WHITE BLOOD COUNT 8.3 TH/MM3 (4.0-11.0)
[2018-02-21] MEDS: MIDAZOLAM 100 MG/NS 100 ML DRIP Premix IV PRN (04:59)
[2018-02-21] MEDS: METHOCARBAMOL 500 MG TAB PO SCH ×3 (05:16→21:17)
[2018-02-21 05:17] LABS: BICARBONATE 34.7 MEQ/L (21.0-32.0); CALCIUM 8.6 MG/DL (8.5-10.1); CREATININE 0.64 MG/DL (0.60-1.30)
[2018-02-21] MEDS: INSULIN NovoLIN REGULAR SUPPLEMENTAL SCALE SQ SCH ×5 (06:00→23:41)
[2018-02-21] MEDS: DOCUSATE SODIUM 50 MG/SENNA 8.6 MG TAB PO SCH ×2 (08:06→21:17)
[2018-02-21] MEDS: VALPROIC ACID SYRUP 250 MG/5 ML UDC PO SCH ×3 (08:06→18:06)
[2018-02-21] MEDS: FAMOTIDINE 20 MG TAB PO SCH ×2 (08:06→21:17)
[2018-02-21] MEDS: LIDOCAINE HCL 5% PATCH T-DERMAL SCH (08:06)
[2018-02-21] MEDS: ARTIFICIAL TEARS OPTH OINT 3.5 APPLIC/3.5 GM TUBO EACH EYE SCH ×2 (08:07→21:17)
[2018-02-21] MEDS: CHLORHEXIDINE 0.12% (ORAL KIT) 15 ML CUP MT SCH ×2 (08:07→21:17)
[2018-02-21] MEDS: INSULIN DETEMIR 100 UNITS/ML VIAL SQ SCH ×2 (08:07→21:18)
[2018-02-21] MEDS: BACITRACIN TOP OINT 15 GM TUBE TOPICAL SCH ×2 (08:09→21:18)
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
[2018-02-21] MEDS: ENOXAPARIN SODIUM 30 MG/0.3 ML SYRINGE SQ SCH ×2 (09:34→21:18)
[2018-02-21] MEDS: fentaNYL DRIP 250 ML IV PRN (09:34)
[2018-02-21] MEDS ORDERED: LACTULOSE SYRUP 20 GM/30 ML CUP PO PRN (11:30)
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
[2018-02-21] MEDS: MAGNESIUM HYDROXIDE SUSP 30 ML CUP PO SCH (21:17)
[2018-02-21] MEDS: cefTRIAXone INJ 2,000 MG in SODIUM CHLORIDE 0.9% INJ 100 ML IV SCH (21:17)
[2018-02-21] MEDS: REMOVE OLD LIDOCAINE PATCH T-DERMAL SCH (22:12)
[2018-02-22] VITALS (18 sets, daily range): BP systolic 114–136; BP diastolic 54–74; PULSE 60–66; RESP 10–18; TEMP 99.1–100.2; O2SAT 92–100
[2018-02-22] MEDS: PROPOFOL 1000 MG/100 ML INJ 100 ML IV PRN ×5 (02:14→20:34)
[2018-02-22] MEDS: MIDAZOLAM 100 MG/NS 100 ML DRIP Premix IV PRN (03:02)
[2018-02-22] MEDS: fentaNYL DRIP 250 ML IV PRN (03:02)
[2018-02-22 03:03] LABS: AUTOMATED NEUTROPHIL # 6.9 TH/MM3 (1.8-7.7); BASOPHIL # 0.1 TH/MM3 (0-0.2); EOSINOPHIL # 0.4 TH/MM3 (0-0.4); EOSINOPHIL % 3.3 % (0.0-4.0); HEMATOCRIT 28.1 % (39.0-51.0); HEMOGLOBIN 9.2 GM/DL (13.0-17.0); LYMPH % 22.1 % (9.0-44.0); LYMPHOCYTE # 2.3 TH/MM3 (1.0-4.8); MEAN CELL VOLUME 88.1 FL (80.0-100.0); MEAN CORPUSCULAR HEMOGLOBIN 28.9 PG (27.0-34.0); MEAN CORPUSCULAR HGB CONC 32.8 % (32.0-36.0); MEAN PLATELET VOLUME 7.9 FL (7.0-11.0); MONO % 8.5 % (0.0-8.0); MONOCYTE # 0.9 TH/MM3 (0-0.9); NEUT % 65.1 % (16.0-70.0); PLATELET COUNT 516 TH/MM3 (150-450); RED BLOOD COUNT 3.18 MIL/MM3 (4.50-5.90); RED CELL DISTRIBUTION WIDTH 14.2 % (11.6-17.2); WHITE BLOOD COUNT 10.6 TH/MM3 (4.0-11.0)
[2018-02-22 03:25] LABS: BICARBONATE 34.1 MEQ/L (21.0-32.0); CALCIUM 8.6 MG/DL (8.5-10.1); CREATININE 0.67 MG/DL (0.60-1.30)
--- NOTE | 2018-02-22 05:31 | RADRPT ---
EXAM DATE/TIME: 02/22/2018 05:01 [facility] COMPARISON: CHEST SINGLE AP, February 20, 2018, 3:27. INDICATIONS : Short of breath. MEDICAL HISTORY : NE. Diabetes. SURGICAL HISTORY : Coronary artery stent. ENCOUNTER: Subsequent ACUITY: 2 weeks PAIN SCORE: 0/10 LOCATION: Bilateral chest FINDINGS: Endotracheal tube in good position. NG enters stomach. Bilateral mostly basilar airspace disease and small effusions. Healing left-sided rib fractures. CONCLUSION: 1. Bilateral mostly basilar airspace disease. Endotracheal tube and nasogastric tube in good position . Healing left rib fractures. Saul Smyth MD on February 22, 2018 at 5:28 Board Certified Radiologist. This report was verified electronically.
[2018-02-22] MEDS: INSULIN NovoLIN REGULAR SUPPLEMENTAL SCALE SQ SCH ×3 (06:00→17:54)
[2018-02-22] MEDS: METHOCARBAMOL 500 MG TAB PO SCH ×3 (06:43→22:01)
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
[2018-02-22] MEDS: INSULIN DETEMIR 100 UNITS/ML VIAL SQ SCH ×2 (09:00→19:24)
[2018-02-22] MEDS: ENOXAPARIN SODIUM 30 MG/0.3 ML SYRINGE SQ SCH ×2 (09:32→20:15)
[2018-02-22] MEDS: DOCUSATE SODIUM 50 MG/SENNA 8.6 MG TAB PO SCH ×2 (09:33→20:14)
[2018-02-22] MEDS: MAGNESIUM HYDROXIDE SUSP 30 ML CUP PO SCH ×2 (09:33→20:14)
[2018-02-22] MEDS: VALPROIC ACID SYRUP 250 MG/5 ML UDC PO SCH ×3 (09:33→17:19)
[2018-02-22] MEDS: FAMOTIDINE 20 MG TAB PO SCH ×2 (09:33→20:14)
[2018-02-22] MEDS: LIDOCAINE HCL 5% PATCH T-DERMAL SCH (09:35)
[2018-02-22] MEDS: CHLORHEXIDINE 0.12% (ORAL KIT) 15 ML CUP MT SCH ×2 (09:36→20:15)
[2018-02-22] MEDS: ARTIFICIAL TEARS OPTH OINT 3.5 APPLIC/3.5 GM TUBO EACH EYE SCH ×2 (09:37→20:15)
[2018-02-22] MEDS: BACITRACIN TOP OINT 15 GM TUBE TOPICAL SCH ×2 (09:39→20:15)
[2018-02-22] MEDS: PIPERACIL-TAZO 3.375 GM PREMIX 50 ML IV SCH ×3 (11:18→22:01)
[2018-02-22] MEDS: ENALAPRILAT 1.25 MG/ML VIAL IV PUSH PRN (13:46)
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
--- NOTE | 2018-02-22 17:14 | PD.CONS ---
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 benefits/burdens of treatment options, for clarification of goals of treatment. Additionally will assist with any symptoms of palliative concern Time Spent Total Floor Time (mins): 75 (Chart review, physical exam, discussion with critical care, discussion with nurse, discussion with proxy at bedside) Thank you for the opportunity to participate in the care of Mr. Logan. Attestation To help prompt me to consider important information that might be impacting today's encounter and assessment, information from prior notes written by myself or my colleagues may have been "brought forward" into today's note. My signature on this note, however, is an attestation that I personally performed the exam, history, and/or decision-making noted today, and, unless otherwise indicated, the interactions with patient, family, and staff as well as the review of records all occurred today. I also attest that the listed assessment and stated plan reflect my best clinical judgment today based on the combination of historical information, prior notes, and today's exam/ interactions. When time spent is documented, it refers only to time spent today by the signer, or if indicated, combined time spent today by collaborating physician/nurse practitioner. Comfort Morales Feb 22, 2018 17:13
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
[2018-02-22] MEDS: CHLORHEXIDINE GLUCONATE 2 % 1 PACK (2 CLOTHS) TOP SCH (19:25)
[2018-02-22] MEDS: REMOVE OLD LIDOCAINE PATCH T-DERMAL SCH (20:35)
[2018-02-23] VITALS (17 sets, daily range): BP systolic 107–160; BP diastolic 47–80; PULSE 63–86; RESP 12–15; TEMP 99–100.2; O2SAT 93–100
[2018-02-23] MEDS: fentaNYL DRIP 250 ML IV PRN ×2 (00:25→22:19)
[2018-02-23] MEDS: PROPOFOL 1000 MG/100 ML INJ 100 ML IV PRN ×7 (00:25→22:41)
[2018-02-23] MEDS: PIPERACIL-TAZO 3.375 GM PREMIX 50 ML IV SCH ×2 (02:53→08:43)
[2018-02-23] MEDS: METHOCARBAMOL 500 MG TAB PO SCH ×3 (05:44→20:54)
--- NOTE | 2018-02-23 05:45 | RADRPT ---
EXAM DATE/TIME: 02/23/2018 05:25 [facility] COMPARISON: CHEST SINGLE AP, February 22, 2018, 5:01. INDICATIONS : Short of breath. MEDICAL HISTORY : ID. Diabetes. SURGICAL HISTORY : Coronary artery stent. ENCOUNTER: Subsequent ACUITY: 3 weeks PAIN SCORE: Non-responsive. LOCATION: Bilateral chest FINDINGS: Endotracheal tube in good position. NG enters stomach. Bilateral mostly basilar airspace disease fawad lar to February 22. No pneumothorax. CONCLUSION: 1. Stable basilar airspace disease. Endotracheal tube and nasogastric tube unchanged. Saul Smyth MD on February 23, 2018 at 5:43 Board Certified Radiologist. This report was verified electronically.
[2018-02-23 05:50] LABS: AUTOMATED NEUTROPHIL # 7.8 TH/MM3 (1.8-7.7); BASOPHIL % 0.5 % (0.0-2.0); EOSINOPHIL # 0.2 TH/MM3 (0-0.4); EOSINOPHIL % 1.6 % (0.0-4.0); HEMATOCRIT 28.3 % (39.0-51.0); HEMOGLOBIN 9.5 GM/DL (13.0-17.0); LYMPHOCYTE # 1.5 TH/MM3 (1.0-4.8); MEAN CELL VOLUME 86.3 FL (80.0-100.0); MEAN CORPUSCULAR HGB CONC 33.6 % (32.0-36.0); MEAN PLATELET VOLUME 7.7 FL (7.0-11.0); MONO % 6.8 % (0.0-8.0); MONOCYTE # 0.7 TH/MM3 (0-0.9); NEUT % 76.1 % (16.0-70.0); PLATELET COUNT 476 TH/MM3 (150-450); RED BLOOD COUNT 3.29 MIL/MM3 (4.50-5.90); RED CELL DISTRIBUTION WIDTH 14.3 % (11.6-17.2); WHITE BLOOD COUNT 10.2 TH/MM3 (4.0-11.0)
[2018-02-23] MEDS: INSULIN NovoLIN REGULAR SUPPLEMENTAL SCALE SQ SCH ×4 (06:00→18:00)
[2018-02-23 06:02] LABS: PROTHROMBIN TIME - PATIENT 10.1 SEC (9.8-11.6)
[2018-02-23 06:08] LABS: BICARBONATE 30.8 MEQ/L (21.0-32.0); CALCIUM 8.4 MG/DL (8.5-10.1); CREATININE 0.7 MG/DL (0.60-1.30)
[2018-02-23] MEDS: CHLORHEXIDINE 0.12% (ORAL KIT) 15 ML CUP MT SCH ×2 (08:00→20:37)
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
[2018-02-23] MEDS: MAGNESIUM HYDROXIDE SUSP 30 ML CUP PO SCH ×2 (08:43→20:54)
[2018-02-23] MEDS: LIDOCAINE HCL 5% PATCH T-DERMAL SCH (08:43)
[2018-02-23] MEDS: VALPROIC ACID SYRUP 250 MG/5 ML UDC PO SCH ×3 (08:44→18:23)
[2018-02-23] MEDS: DOCUSATE SODIUM 50 MG/SENNA 8.6 MG TAB PO SCH ×2 (08:44→20:54)
[2018-02-23] MEDS: FAMOTIDINE 20 MG TAB PO SCH ×2 (08:44→20:54)
[2018-02-23] MEDS: INSULIN DETEMIR 100 UNITS/ML VIAL SQ SCH ×2 (08:44→21:00)
[2018-02-23] MEDS: ARTIFICIAL TEARS OPTH OINT 3.5 APPLIC/3.5 GM TUBO EACH EYE SCH ×2 (08:44→20:55)
[2018-02-23] MEDS: ENOXAPARIN SODIUM 30 MG/0.3 ML SYRINGE SQ SCH ×2 (09:00→20:55)
[2018-02-23] MEDS: BACITRACIN TOP OINT 15 GM TUBE TOPICAL SCH ×2 (09:00→20:55)
[2018-02-23] MEDS ORDERED: ROCURONIUM INJ 50 MG/5 ML VIAL IV ONE (10:15)
[2018-02-23] MEDS ORDERED: MIDAZOLAM HCL 5 MG/ML VIAL (1 ML) IV PUSH ONE (10:15)
--- NOTE | 2018-02-23 11:59 | HHI.IDPN ---
Note Infectious Disease Note Patient remains on the vent. Currently on 60% FiO2. Plan is for tracheostomy today. Remains sedated. Low-grade fever. Receiving piperacillin/tazobactam without reaction. Patient's fiancee noted that he had reaction to amoxicillin approximately 1 and 1/2 years ago. Patient admitted after trauma. He sustained injuries including facial fractures, multiple left-sided rib fractures, bitemporal, pulmonary contusion. He was also noted to have a tiny pneumothorax. The patient was agitated when he was admitted and he was intubated. ALLERGIES: UNKNOWN. MEDICATIONS: Current Medications Medications (Trade) Dose Ordered Sig/Elle Route PRN Reason Start Time Stop Time Status Last Admin Dose Admin Sodium Chloride (NS Flush) 2 ml UNSCH PRN IV FLUSH FLUSH AFTER USING IV ACCESS 02/03/18 18:30 02/05/18 08:40 Enalaprilat (Vasotec Inj) 1.25 mg Q8H PRN IV PUSH SBP>180, DBP>95 02/03/18 18:30 02/22/18 13:46 Ondansetron HCl (Zofran Inj) 4 mg Q6H PRN IV PUSH NAUSEA OR VOMITING 02/03/18 18:30 Miscellaneous Information 1 Q361D XX 02/03/18 18:30 02/03/18 18:30 Chlorhexidine Gluconate (Chlorhexidine 2% Cloth) 3 pack Taper DAILY@04 TOP 02/04/18 04:00 01/31/19 03:59 02/06/18 03:04 Chlorhexidine Gluconate (Chlorhexidine 2% Cloth) 3 pack UNSCH PRN TOP HYGIENIC CARE 02/03/18 18:30 Propofol 100 ml @ 3.039 mls/ hr TITRATE PRN IV SEDATION 02/03/18 20:00 02/23/18 11:35 Fentanyl Citrate 250 ml @ 5 mls/hr TITRATE PRN IV SEDATION 02/03/18 20:00 02/23/18 00:25 Midazolam HCl 100 ml @ 2 mls/hr TITRATE PRN IV SEDATION 02/03/18 22:30 02/22/18 03:02 Potassium Chloride 100 ml @ 50 mls/hr Q2H PRN IV For Potassium 2.8 - 3.2 mEq/L 02/04/18 07:00 Potassium Chloride 100 ml @ 50 mls/hr Q2H PRN IV For Potassium 2.8 - 3.2 mEq/L 02/04/18 07:00 02/06/18 07:57 Potassium Bicarb/ Potassium Chloride (K-Lyte Cl Eff) 50 meq UNSCH PRN PO For Potassium 3.3 - 3.5 mEq/L 02/04/18 07:00 02/05/18 10:50 Potassium Chloride 100 ml @ 25 mls/hr UNSCH PRN IV For Potassium 3.3 - 3.5 mEq/L 02/04/18 07:00 Potassium Chloride 100 ml @ 50 mls/hr Q2H PRN IV For Potassium 3.3 - 3.5 mEq/L 02/04/18 07:00 02/07/18 17:35 Magnesium Sulfate 4 gm/Sodium Chloride 100 ml @ 50 mls/hr UNSCH PRN IV For Magnesium 0.9 - 1.1 mg/dL 02/04/18 07:00 Magnesium Oxide (Mag-Ox) 800 mg UNSCH PRN PO For Magnesium 1.2 - 1.6 mg/dL 02/04/18 07:00 Magnesium Sulfate 2 gm/Sodium Chloride 100 ml @ 50 mls/hr UNSCH PRN IV For Magnesium 1.2 - 1.6 mg/dL 02/04/18 07:00 02/06/18 08:02 Potassium Phosphate (K-Phos) 2,000 mg Q4H PRN PO For Phosphorus < 2.5 mg/dL 02/04/18 07:00 Sodium Phosphate 30 mmol/Sodium Chloride 250 ml @ 42 mls/hr UNSCH PRN IV For Phosphorus < 2.5 mg/dL 02/04/18 07:00 02/06/18 20:54 Potassium Phosphate (K-Phos) 2,000 mg UNSCH PRN PO/TUBE SEE LABEL COMMENTS 02/04/18 07:00 Potassium Phosphate 30 mmol/ Sodium Chloride 260 ml @ 42 mls/hr UNSCH PRN IV SEE LABEL COMMENTS 02/04/18 07:00 02/07/18 19:02 Chlorhexidine Gluconate (Peridex 0.12% Liq) 15 ml BID@08,20 MT 02/04/18 08:00 02/23/18 08:00 Famotidine (Pepcid) 20 mg BID PO 02/04/18 09:00 02/23/18 08:44 Albuterol/ Ipratropium (Duoneb Neb) 1 ampule Q2HR NEB PRN NEB wheezing 02/04/18 07:00 02/12/18 09:13 Methocarbamol (Robaxin) 500 mg Q8HR PO 02/04/18 14:00 02/22/18 22:01 Lidocaine HCl (Lidoderm 5% Patch.12 Hr) 1 patch DAILY T-DERMAL 02/04/18 09:00 02/23/18 08:43 Miscellaneous Information 1 Q24H T-DERMAL 02/04/18 21:00 02/22/18 20:35 Bacitracin (Baciguent Oint) 1 applic Q12HR TOPICAL 02/04/18 11:30 02/22/18 20:15 Acetaminophen (Tylenol 650 Mg/ 20 ml Liq) 650 mg Q6H PRN PO TEMPERATURE > 101 F 02/04/18 23:15 02/11/18 23:57 Oxycodone HCl (Roxicodone) 5 mg Q4H PO 02/05/18 11:00 02/23/18 08:44 Dextrose (D50w (Vial) Inj) 50 ml UNSCH PRN IV PUSH HYPOGLYCEMIA-SEE COMMENTS 02/09/18 10:15 Glucagon (Glucagon Inj) 1 mg UNSCH PRN OTHER HYPOGLYCEMIA-SEE COMMENTS 02/09/18 10:15 Magnesium Hydroxide (Milk Of Guicho Liq) 30 ml BID PO 02/10/18 09:00 Future hold 02/23/18 08:43 Senna/Docusate Sodium (Abbey-Colace) 1 tab BID PO 02/10/18 09:00 02/23/18 08:44 Metoprolol Tartrate (Lopressor Inj) 2.5 mg Q6H IV PUSH 02/11/18 12:00 Future Hold 02/16/18 05:58 Insulin Detemir (Levemir Inj) 15 units BID SQ 02/13/18 21:00 02/23/18 08:44 Insulin Human Regular (NovoLIN R SUPPLEMENTAL SCALE) 1 Q6HR SQ 02/15/18 12:00 02/22/18 17:54 Artificial Tears (Lacrilube Opht Oint) 1 applic Q12HR EACH EYE 02/15/18 21:00 02/23/18 08:44 Hydrocortisone (Nutracort 1% Oint) 1 applic BID PRN TOPICAL soiling 02/18/18 09:30 02/25/18 09:29 02/19/18 18:08 Valproic Acid (Depakene Liq) 250 mg TID PO 02/18/18 18:00 02/23/18 08:44 Enoxaparin Sodium (Lovenox Inj) 30 mg BID SQ 02/21/18 09:00 02/22/18 20:15 Lactulose (Lactulose Liq) 30 ml DAILY PRN PO constipation 02/21/18 11:30 02/21/18 14:18 Aztreonam 2000 mg/ Sodium Chloride 100 ml @ 200 mls/hr Q8H IV 02/23/18 12:00 UNV Current Medications Medications (Trade) Dose Ordered Sig/Elle Route PRN Reason Start Time Stop Time Status Last Admin Dose Admin Sodium Chloride (NS Flush) 2 ml UNSCH PRN IV FLUSH FLUSH AFTER USING IV ACCESS 02/03/18 18:30 02/05/18 08:40 Enalaprilat (Vasotec Inj) 1.25 mg Q8H PRN IV PUSH SBP>180, DBP>95 02/03/18 18:30 02/22/18 13:46 Ondansetron HCl (Zofran Inj) 4 mg Q6H PRN IV PUSH NAUSEA OR VOMITING 02/03/18 18:30 Miscellaneous Information 1 Q361D XX 02/03/18 18:30 02/03/18 18:30 Chlorhexidine Gluconate (Chlorhexidine 2% Cloth) Taper DAILY@04 TOP 02/04/18 04:00 01/31/19 03:59 02/06/18 03:04 Chlorhexidine Gluconate (Chlorhexidine 2% Cloth) 3 pack UNSCH PRN TOP HYGIENIC CARE 02/03/18 18:30 Propofol 100 ml @ 3.039 mls/ hr TITRATE PRN IV SEDATION 02/03/18 20:00 02/22/18 13:46 Fentanyl Citrate 250 ml @ 5 mls/hr TITRATE PRN IV SEDATION 02/03/18 20:00 02/22/18 03:02 Midazolam HCl 100 ml @ 2 mls/hr TITRATE PRN IV SEDATION 02/03/18 22:30 02/22/18 03:02 Potassium Chloride 100 ml @ 50 mls/hr Q2H PRN IV For Potassium 2.8 - 3.2 mEq/L 02/04/18 07:00 Potassium Chloride 100 ml @ 50 mls/hr Q2H PRN IV For Potassium 2.8 - 3.2 mEq/L 02/04/18 07:00 02/06/18 07:57 Potassium Bicarb/ Potassium Chloride (K-Lyte Cl Eff) 50 meq UNSCH PRN PO For Potassium 3.3 - 3.5 mEq/L 02/04/18 07:00 02/05/18 10:50 Potassium Chloride 100 ml @ 25 mls/hr UNSCH PRN IV For Potassium 3.3 - 3.5 mEq/L 02/04/18 07:00 Potassium Chloride 100 ml @ 50 mls/hr Q2H PRN IV For Potassium 3.3 - 3.5 mEq/L 02/04/18 07:00 02/07/18 17:35 Magnesium Sulfate 4 gm/Sodium Chloride 100 ml @ 50 mls/hr UNSCH PRN IV For Magnesium 0.9 - 1.1 mg/dL 02/04/18 07:00 Magnesium Oxide (Mag-Ox) 800 mg UNSCH PRN PO For Magnesium 1.2 - 1.6 mg/dL 02/04/18 07:00 Magnesium Sulfate 2 gm/Sodium Chloride 100 ml @ 50 mls/hr UNSCH PRN IV For Magnesium 1.2 - 1.6 mg/dL 02/04/18 07:00 02/06/18 08:02 Potassium Phosphate (K-Phos) 2,000 mg Q4H PRN PO For Phosphorus < 2.5 mg/dL 02/04/18 07:00 Sodium Phosphate 30 mmol/Sodium Chloride 250 ml @ 42 mls/hr UNSCH PRN IV For Phosphorus < 2.5 mg/dL 02/04/18 07:00 02/06/18 20:54 Potassium Phosphate (K-Phos) 2,000 mg UNSCH PRN PO/TUBE SEE LABEL COMMENTS 02/04/18 07:00 Potassium Phosphate 30 mmol/ Sodium Chloride 260 ml @ 42 mls/hr UNSCH PRN IV SEE LABEL COMMENTS 02/04/18 07:00 02/07/18 19:02 Chlorhexidine Gluconate (Peridex 0.12% Liq) 15 ml BID@08,20 MT 02/04/18 08:00 02/22/18 09:36 Famotidine (Pepcid) 20 mg BID PO 02/04/18 09:00 02/22/18 09:33 Albuterol/ Ipratropium (Duoneb Neb) 1 ampule Q2HR NEB PRN NEB wheezing 02/04/18 07:00 02/12/18 09:13 Methocarbamol (Robaxin) 500 mg Q8HR PO 02/04/18 14:00 02/22/18 13:47 Lidocaine HCl (Lidoderm 5% Patch.12 Hr) 1 patch DAILY T-DERMAL 02/04/18 09:00 02/22/18 09:35 Miscellaneous Information 1 Q24H T-DERMAL 02/04/18 21:00 02/21/18 22:12 Bacitracin (Baciguent Oint) 1 applic Q12HR TOPICAL 02/04/18 11:30 02/22/18 09:39 Acetaminophen (Tylenol 650 Mg/ 20 ml Liq) 650 mg Q6H PRN PO TEMPERATURE > 101 F 02/04/18 23:15 02/11/18 23:57 Oxycodone HCl (Roxicodone) 5 mg Q4H PO 02/05/18 11:00 02/22/18 10:39 Dextrose (D50w (Vial) Inj) 50 ml UNSCH PRN IV PUSH HYPOGLYCEMIA-SEE COMMENTS 02/09/18 10:15 Glucagon (Glucagon Inj) 1 mg UNSCH PRN OTHER HYPOGLYCEMIA-SEE COMMENTS 02/09/18 10:15 Magnesium Hydroxide (Milk Of Magnesia Liq) 30 ml BID PO 02/10/18 09:00 Future hold 02/22/18 09:33 Senna/Docusate Sodium (Abbey-Colace) 1 tab BID PO 02/10/18 09:00 02/22/18 09:33 Metoprolol Tartrate (Lopressor Inj) 2.5 mg Q6H IV PUSH 02/11/18 12:00 Future Hold 02/16/18 05:58 Insulin Detemir (Levemir Inj) 15 units BID SQ 02/13/18 21:00 02/21/18 21:18 Insulin Human Regular (NovoLIN R SUPPLEMENTAL SCALE) 1 Q6HR SQ 02/15/18 12:00 02/20/18 17:51 Artificial Tears (Lacrilube Opht Oint) 1 applic Q12HR EACH EYE 02/15/18 21:00 02/22/18 09:37 Hydrocortisone (Nutracort 1% Oint) 1 applic BID PRN TOPICAL soiling 02/18/18 09:30 02/25/18 09:29 02/19/18 18:08 Valproic Acid (Depakene Liq) 250 mg TID PO 02/18/18 18:00 02/22/18 13:47 Enoxaparin Sodium (Lovenox Inj) 30 mg BID SQ 02/21/18 09:00 02/22/18 09:32 Lactulose (Lactulose Liq) 30 ml DAILY PRN PO constipation 02/21/18 11:30 02/21/18 14:18 Piperacillin Sod/ Tazobactam Sod 50 ml @ 100 mls/hr Q6H IV 02/22/18 10:00 02/22/18 11:18 Objective: Vital Signs Date Time Temp Pulse Resp B/P (MAP) Pulse Ox O2 Delivery O2 Flow Rate FiO2 02/23/18 10:00 72 02/23/18 09:04 93 50 02/23/18 08:00 55 02/23/18 08:00 99.7 70 12 96 144/80 (101) 02/23/18 08:00 70 02/23/18 07:00 96 Mechanical Ventilator 55 02/23/18 06:00 66 02/23/18 05:55 55 02/23/18 04:21 96 60 02/23/18 04:00 72 02/23/18 04:00 99.0 72 12 96 107/47 (67) 02/23/18 04:00 60 02/23/18 03:56 14 02/23/18 02:00 67 02/23/18 00:00 65 02/23/18 00:00 63 02/23/18 00:00 99.7 63 15 100 137/65 (89) 02/22/18 23:41 99 65 02/22/18 22:00 66 02/22/18 21:19 99 80 02/22/18 20:00 99.3 62 12 100 114/54 (74) 02/22/18 20:00 75 02/22/18 20:00 66 02/22/18 19:00 98 Mechanical Ventilator 80 02/22/18 18:00 65 02/22/18 16:00 60 02/22/18 16:00 100 4/23/18 16:00 99.3 60 12 97 121/64 (83) 02/22/18 15:34 99 80 02/22/18 14:00 63 02/22/18 12:00 100 02/22/18 12:00 99.1 62 12 94 121/59 (79) 02/22/18 12:00 62 Laboratory Tests Test 02/22/18 02:35 02/23/18 05:33 White Blood Count 10.6 TH/MM3 10.2 TH/MM3 Red Blood Count 3.18 MIL/MM3 3.29 MIL/MM3 Hemoglobin 9.2 GM/DL 9.5 GM/DL Hematocrit 28.1 % 28.3 % Mean Corpuscular Volume 88.1 FL 86.3 FL Mean Corpuscular Hemoglobin 28.9 PG 29.0 PG Mean Corpuscular Hemoglobin Concent 32.8 % 33.6 % Red Cell Distribution Width 14.2 % 14.3 % Platelet Count 516 TH/MM3 476 TH/MM3 Mean Platelet Volume 7.9 FL 7.7 FL Neutrophils (%) (Auto) 65.1 % 76.1 % Lymphocytes (%) (Auto) 22.1 % 15.0 % Monocytes (%) (Auto) 8.5 % 6.8 % Eosinophils (%) (Auto) 3.3 % 1.6 % Basophils (%) (Auto) 1.0 % 0.5 % Neutrophils # (Auto) 6.9 TH/MM3 7.8 TH/MM3 Lymphocytes # (Auto) 2.3 TH/MM3 1.5 TH/MM3 Monocytes # (Auto) 0.9 TH/MM3 0.7 TH/MM3 Eosinophils # (Auto) 0.4 TH/MM3 0.2 TH/MM3 Basophils # (Auto) 0.1 TH/MM3 0.0 TH/MM3 CBC Comment DIFF FINAL DIFF FINAL Differential Comment Laboratory Tests Test 02/22/18 02:35 02/23/18 05:33 Blood Urea Nitrogen 16 MG/DL 17 MG/DL Creatinine 0.67 MG/DL 0.70 MG/DL Random Glucose 128 MG/DL 135 MG/DL Calcium Level 8.6 MG/DL 8.4 MG/DL Sodium Level 142 MEQ/L 142 MEQ/L Potassium Level 4.4 MEQ/L 3.9 MEQ/L Chloride Level 102 MEQ/L 102 MEQ/L Carbon Dioxide Level 34.1 MEQ/L 30.8 MEQ/L Anion Gap 6 MEQ/L 9 MEQ/L Estimat Glomerular Filtration Rate 124 ML/MIN 118 ML/MIN Microbiology Date/Time Source Procedure Growth Status 02/20/18 04:00 Sputum Endotracheal Gram Stain - Final Complete 02/20/18 04:00 Sputum Culture - Final Serratia Marcescens Complete Imaging: Chest X-Ray 02/23/18 0600 Signed Impressions: Service Date/Time: Friday, February 23, 2018 05:25 - CONCLUSION: 1. Stable basilar airspace disease. Endotracheal tube and nasogastric tube unchanged. Saul Smyth MD Chest X-Ray 02/22/18 0600 Signed Impressions: Service Date/Time: Thursday, February 22, 2018 05:01 - CONCLUSION: 1. Bilateral mostly basilar airspace disease. Endotracheal tube and nasogastric tube in good position. Healing left rib fractures. Saul Smyth MD Chest X-Ray 02/22/18 0600 Signed Impressions: Service Date/Time: Thursday, February 22, 2018 05:01 - CONCLUSION: 1. Bilateral mostly basilar airspace disease. Endotracheal tube and nasogastric tube in good position. Healing left rib fractures. Saul Smyth MD Chest X-Ray 02/20/18 0600 Signed Impressions: Service Date/Time: Tuesday, February 20, 2018 03:27 - CONCLUSION: Significant improvement in the bilateral pulmonary infiltrates. Timmy Russell Jr., MD Chest X-Ray 02/18/18 0000 Signed Impressions: Service Date/Time: January 23:01 - CONCLUSION: Worsening bibasilar pulmonary infiltrates. Timmy Russell Jr., MD PHYSICAL EXAMINATION: GENERAL: Sedated on the ventilator. HEENT: Mild eyelid swelling. Oropharynx intubated. NECK: No adenopathy or swelling. LUNGS: Better air movement. Slight basilar rhonchi bilateral. HEART: Regular S1 and S2. No audible murmur. ABDOMEN: Obese, soft. Distended. No tenderness appreciated. EXTREMITIES: No clubbing, cyanosis or edema. SKIN: No diffuse rash. NEUROLOGIC: Unable to assess. PSYCHIATRIC: Unable to assess. IMPRESSION: 1. Fever secondary to pneumonia. Repeat sputum culture has Serratia. Sensitive to piperacillin/tazobactam. However we will switch antibiotic to aztreonam to avoid potential reaction. 2. Pneumonia due to Serratia. 3. Acute respiratory failure. Vent dependent. Tracheostomy planned. 4. Status post trauma. 5. Elevated liver function tests resolved. RECOMMENDATIONS: 1. Change piperacillin/tazobactam to aztreonam. 2. Monitor temperature. 3. Monitor clinical status. Discussed with patient's at bedside and with RN. Darvin Haney MD Feb 23, 2018 11:59
[2018-02-23] MEDS: AZTREONAM INJ 2,000 MG in SODIUM CHLORIDE 0.9% INJ 100 ML IV SCH ×2 (13:00→20:57)
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
--- NOTE | 2018-02-23 18:01 | PD.PROCEDR ---
Procedure Note Procedure Procedure fiberoptic bronchoscopy for bronchoscopy guided percutaneous tracheostomy Operators: Dr. Gil Jackson for fiberoptic bronchoscopy/ Dr. Ellsworth for percutaneous tracheostomy Informed consent obtained from family and documented in chart Anesthesia used per Dr. Ellsworth Procedure: Patient was placed on 100% oxygen via ET tube/mechanical ventilator. After ensuring adequate sedation/analgesia/ neuromuscular blockade, fiberoptic bronchoscope was inserted via adapter on ET tube and advanced into the trachea upto the cabrera. Following this bronchoscope was withdrawn back to the tip of ET tube. After deflating cuff of ET tube it was withdrawn back to the 18 cm todd. Subsequent steps of percutaneous tracheostomy were directly visualized on videomonitor via bronchoscopy including insertion of introducer catheter followed by guidewire and then insertion of tracheal dilator followed by insertion of tracheostomy tube following which bronchoscope was withdrawn out of the ET tube and was inserted down the percutaneous tracheostomy and correct placement was confirmed by visualizing tracheal rings following which bronchoscope was withdrawn. Inner cannula was placed by Dr. Ellsworht and after inflating cuff, patient was connected to mechanical ventilation via tracheostomy tube. Bronchoscope was reinserted via ET tube and minimal amount of secretions were suctioned out from above cuff of tracheostomy tube following which bronchoscope and ET tube were withdrawn out. Patient tolerated the procedure well with no immediate complications noted. Gil Jackson MD Feb 23, 2018 18:00
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
[2018-02-23] MEDS: REMOVE OLD LIDOCAINE PATCH T-DERMAL SCH (20:55)
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
[2018-02-24] VITALS (17 sets, daily range): BP systolic 103–167; BP diastolic 55–82; PULSE 50–88; RESP 12–19; TEMP 98.4–100.4; O2SAT 94–100
[2018-02-24] MEDS: PROPOFOL 1000 MG/100 ML INJ 100 ML IV PRN ×5 (03:32→22:58)
[2018-02-24] MEDS: CHLORHEXIDINE GLUCONATE 2 % 1 PACK (2 CLOTHS) TOP SCH (04:00)
[2018-02-24] MEDS: AZTREONAM INJ 2,000 MG in SODIUM CHLORIDE 0.9% INJ 100 ML IV SCH ×3 (05:08→21:36)
[2018-02-24] MEDS: METHOCARBAMOL 500 MG TAB PO SCH ×3 (05:08→21:43)
[2018-02-24] MEDS: INSULIN NovoLIN REGULAR SUPPLEMENTAL SCALE SQ SCH ×5 (06:00→23:25)
[2018-02-24 06:14] LABS: AUTOMATED NEUTROPHIL # 6.3 TH/MM3 (1.8-7.7); BASOPHIL # 0.1 TH/MM3 (0-0.2); BASOPHIL % 0.9 % (0.0-2.0); EOSINOPHIL # 0.3 TH/MM3 (0-0.4); EOSINOPHIL % 3.6 % (0.0-4.0); HEMATOCRIT 27.7 % (39.0-51.0); HEMOGLOBIN 9.2 GM/DL (13.0-17.0); LYMPH % 21.2 % (9.0-44.0); MEAN CELL VOLUME 86.7 FL (80.0-100.0); MEAN CORPUSCULAR HEMOGLOBIN 28.7 PG (27.0-34.0); MEAN CORPUSCULAR HGB CONC 33.1 % (32.0-36.0); MEAN PLATELET VOLUME 8.1 FL (7.0-11.0); MONO % 8.9 % (0.0-8.0); MONOCYTE # 0.9 TH/MM3 (0-0.9); NEUT % 65.4 % (16.0-70.0); PLATELET COUNT 461 TH/MM3 (150-450); RED BLOOD COUNT 3.19 MIL/MM3 (4.50-5.90); RED CELL DISTRIBUTION WIDTH 14.2 % (11.6-17.2); WHITE BLOOD COUNT 9.6 TH/MM3 (4.0-11.0)
[2018-02-24 06:41] LABS: BICARBONATE 27.3 MEQ/L (21.0-32.0); CALCIUM 8.3 MG/DL (8.5-10.1); CREATININE 0.71 MG/DL (0.60-1.30)
[2018-02-24] MEDS: LIDOCAINE HCL 5% PATCH T-DERMAL SCH (07:31)
[2018-02-24] MEDS: VALPROIC ACID SYRUP 250 MG/5 ML UDC PO SCH ×3 (07:31→18:00)
[2018-02-24] MEDS: DOCUSATE SODIUM 50 MG/SENNA 8.6 MG TAB PO SCH ×2 (07:31→20:37)
[2018-02-24] MEDS: FAMOTIDINE 20 MG TAB PO SCH ×2 (07:31→20:37)
[2018-02-24] MEDS: MAGNESIUM HYDROXIDE SUSP 30 ML CUP PO SCH ×2 (07:31→20:37)
[2018-02-24] MEDS: POTASSIUM CHLOR 20 MEQ PREMIX 100 ML IV PRN ×4 (07:32→15:30)
[2018-02-24] MEDS: CHLORHEXIDINE 0.12% (ORAL KIT) 15 ML CUP MT SCH ×2 (08:00→20:21)
[2018-02-24] MEDS: INSULIN DETEMIR 100 UNITS/ML VIAL SQ SCH ×2 (09:00→20:43)
[2018-02-24] MEDS: ARTIFICIAL TEARS OPTH OINT 3.5 APPLIC/3.5 GM TUBO EACH EYE SCH ×2 (09:00→20:37)
[2018-02-24] MEDS: ENOXAPARIN SODIUM 30 MG/0.3 ML SYRINGE SQ SCH ×2 (09:00→20:43)
[2018-02-24] MEDS: BACITRACIN TOP OINT 15 GM TUBE TOPICAL SCH ×2 (09:00→21:36)
[2018-02-24] MEDS ORDERED: hydrALAZINE HCL 20 MG/ML VIAL IV PUSH PRN (10:45)
[2018-02-24] MEDS: METOPROLOL TARTRATE 5 MG/5 ML VIAL IV PUSH SCH ×3 (11:08→23:10)
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
[2018-02-24] MEDS: fentaNYL DRIP 250 ML IV PRN (13:24)
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
--- NOTE | 2018-02-24 17:47 | PD.PROCEDR ---
GI Procedure PROCEDURE PERFORMED EGD with PEG placement INDICATION FOR PROCEDURE Respiratory failure, dysphagia PROCEDURE: The procedure, risks and benefits were discussed with Patient/POA and informed consent was obtained. Anesthesia sedated Patient with Diprivan. Patient was placed in the left lateral decubitus position. EGD: The Pentax videoscope was introduced through the oropharynx and advanced to the second portion of the duodenum under direct visualization. Retroflexion was performed in the stomach. FINDINGS: The esophagus this was normal Stomach this was normal The duodenum this was normal Following the evaluation of the stomach and the duodenum the stomach was insufflated with air and the area of PEG placement was identified through indentation and transillumination the area was prepped and draped in usual fashion 5 cc of lidocaine were injected locally a small incision was made then an Angiocath was passed into the stomach through which a guidewire was passed this was retrieved with the scope into that a PEG tube was attached and pulled into place and thereafter secured in usual fashion The patient tolerated procedure well and there are no immediate complications ESTIMATED BLOOD LOSS: None SPECIMENS REMOVED: None COMPLICATIONS: None IMPRESSION: Normal EGD Successful PEG placement PLAN: 1. May use PEG tube for medications today 2. May start feeding tomorrow 3. May obtain nutritional consult for tube feeding 4. Flush tube with 50 cc of water every 4-6 hours 5. Always flush tube after feedings 6. Apply abdominal binder as necessary 7. Clamp G-tube after use and flush. Jj Wray MD Feb 24, 2018 17:47
[2018-02-24] MEDS: REMOVE OLD LIDOCAINE PATCH T-DERMAL SCH (20:44)
[2018-02-25] VITALS (18 sets, daily range): BP systolic 115–157; BP diastolic 55–75; PULSE 48–76; RESP 12–35; TEMP 99.3–101.8; O2SAT 96–100
[2018-02-25] MEDS: CHLORHEXIDINE GLUCONATE 2 % 1 PACK (2 CLOTHS) TOP SCH (03:10)
[2018-02-25] MEDS: PROPOFOL 1000 MG/100 ML INJ 100 ML IV PRN ×4 (03:18→20:00)
[2018-02-25] MEDS: AZTREONAM INJ 2,000 MG in SODIUM CHLORIDE 0.9% INJ 100 ML IV SCH ×2 (04:13→11:53)
[2018-02-25 04:50] LABS: AUTOMATED NEUTROPHIL # 5.6 TH/MM3 (1.8-7.7); BASOPHIL # 0.1 TH/MM3 (0-0.2); BASOPHIL % 0.7 % (0.0-2.0); EOSINOPHIL # 0.5 TH/MM3 (0-0.4); EOSINOPHIL % 5.3 % (0.0-4.0); HEMATOCRIT 25.1 % (39.0-51.0); HEMOGLOBIN 8.7 GM/DL (13.0-17.0); LYMPH % 24.2 % (9.0-44.0); LYMPHOCYTE # 2.3 TH/MM3 (1.0-4.8); MEAN CORPUSCULAR HEMOGLOBIN 30.1 PG (27.0-34.0); MEAN CORPUSCULAR HGB CONC 34.6 % (32.0-36.0); MEAN PLATELET VOLUME 8.1 FL (7.0-11.0); MONO % 10.4 % (0.0-8.0); NEUT % 59.4 % (16.0-70.0); PLATELET COUNT 388 TH/MM3 (150-450); RED BLOOD COUNT 2.88 MIL/MM3 (4.50-5.90); RED CELL DISTRIBUTION WIDTH 14.2 % (11.6-17.2); WHITE BLOOD COUNT 9.4 TH/MM3 (4.0-11.0)
[2018-02-25 04:53] LABS: BICARBONATE 27.8 MEQ/L (21.0-32.0); CALCIUM 8.3 MG/DL (8.5-10.1); CREATININE 0.51 MG/DL (0.60-1.30)
[2018-02-25] MEDS: POTASSIUM CHLOR 20 MEQ PREMIX 100 ML IV PRN ×2 (05:51→09:36)
[2018-02-25] MEDS: INSULIN NovoLIN REGULAR SUPPLEMENTAL SCALE SQ SCH ×3 (06:00→18:00)
[2018-02-25] MEDS: METOPROLOL TARTRATE 5 MG/5 ML VIAL IV PUSH SCH ×3 (06:00→18:00)
[2018-02-25] MEDS: METHOCARBAMOL 500 MG TAB PO SCH ×3 (06:09→22:18)
[2018-02-25] MEDS: CHLORHEXIDINE 0.12% (ORAL KIT) 15 ML CUP MT SCH ×2 (08:00→20:01)
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
[2018-02-25] MEDS: ARTIFICIAL TEARS OPTH OINT 3.5 APPLIC/3.5 GM TUBO EACH EYE SCH ×2 (09:00→22:17)
[2018-02-25] MEDS: MAGNESIUM HYDROXIDE SUSP 30 ML CUP PO SCH ×2 (09:00→20:01)
[2018-02-25] MEDS: ENOXAPARIN SODIUM 30 MG/0.3 ML SYRINGE SQ SCH ×2 (09:34→22:17)
[2018-02-25] MEDS: DOCUSATE SODIUM 50 MG/SENNA 8.6 MG TAB PO SCH ×2 (09:34→20:02)
[2018-02-25] MEDS: VALPROIC ACID SYRUP 250 MG/5 ML UDC PO SCH ×3 (09:34→18:31)
[2018-02-25] MEDS: FAMOTIDINE 20 MG TAB PO SCH ×2 (09:34→22:17)
[2018-02-25] MEDS: INSULIN DETEMIR 100 UNITS/ML VIAL SQ SCH ×2 (09:37→22:17)
[2018-02-25] MEDS: LIDOCAINE HCL 5% PATCH T-DERMAL SCH (09:39)
[2018-02-25] MEDS: BACITRACIN TOP OINT 15 GM TUBE TOPICAL SCH ×2 (09:39→22:18)
[2018-02-25] MEDS ORDERED: PROPOFOL 200 MG/20 ML AMP IV ONE (11:04)
[2018-02-25] MEDS ORDERED: GLYCOPYRROLATE 1 MG/5 ML SYRINGE IV PUSH ONE (11:04)
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
--- NOTE | 2018-02-25 13:01 | HHI.NSPN ---
History Chief Complaint: Unable to obtain due to patient's clinical condition. Interval History Remains on ventilator support. Brief sedation vacation today Exam Results Vital Signs Date Time Temp Pulse Resp B/P (MAP) Pulse Ox O2 Delivery O2 Flow Rate FiO2 02/25/18 11:27 96 50 02/25/18 10:00 66 02/25/18 08:00 99.3 12 137/75 (95) 02/23/18 07:00 Mechanical Ventilator Intake and Output 02/25/18 02/25/18 02/26/18 08:00 16:00 00:00 Intake Total 320 ml Output Total 525 ml Balance -205 ml Physical Examination GENERAL: Obtunded, sedated propofol and fentanyl intubated and mechanically ventilated. Sedation NOT held for assessment. HEENT: Normocephalic. Right side facial & forehead abrasions & left occipital contusion & abrasions healed w/o complication. PERRLA 2 mm sluggish. Orally intubated. MUSCULOSKELETAL: No significant long bone or joint deformity NEUROLOGICAL: Obtunded, sedation NOT held for assessment. No eye opening to any stimulation. PERRLA 2 mm sluggish. Nonverbal, intubated. Did not follow any commands. Mild flexion upper extremities to sternal rub Nursing staff reports that with sedation decreased for approximately 10 minutes , the patient exhibits mild agitation, moving all extremities with moderate strength, not following commands. Lab, Micro, Other Results Laboratory Tests Test 02/25/18 04:04 02/25/18 05:06 02/25/18 11:42 White Blood Count 9.4 TH/MM3 Red Blood Count 2.88 MIL/MM3 Hemoglobin 8.7 GM/DL Hematocrit 25.1 % Mean Corpuscular Volume 87.0 FL Mean Corpuscular Hemoglobin 30.1 PG Mean Corpuscular Hemoglobin Concent 34.6 % Red Cell Distribution Width 14.2 % Platelet Count 388 TH/MM3 Mean Platelet Volume 8.1 FL Neutrophils (%) (Auto) 59.4 % Lymphocytes (%) (Auto) 24.2 % Monocytes (%) (Auto) 10.4 % Eosinophils (%) (Auto) 5.3 % Basophils (%) (Auto) 0.7 % Neutrophils # (Auto) 5.6 TH/MM3 Lymphocytes # (Auto) 2.3 TH/MM3 Monocytes # (Auto) 1.0 TH/MM3 Eosinophils # (Auto) 0.5 TH/MM3 Basophils # (Auto) 0.1 TH/MM3 CBC Comment DIFF FINAL Differential Comment Blood Urea Nitrogen 14 MG/DL Creatinine 0.51 MG/DL Random Glucose 93 MG/DL Calcium Level 8.3 MG/DL Sodium Level 143 MEQ/L Potassium Level 3.3 MEQ/L Chloride Level 108 MEQ/L Carbon Dioxide Level 27.8 MEQ/L Anion Gap 7 MEQ/L Estimat Glomerular Filtration Rate 169 ML/MIN Blood Gas Puncture Site ART LINE ART LINE Blood Gas Patient Temperature 98.6 98.6 Blood Gas HCO3 27 mmol/L 24 mmol/L Blood Gas Base Excess 2.7 mmol/L 0.2 mmol/L Blood Gas Oxygen Saturation 96 % 96 % Arterial Blood pH 7.43 7.40 Arterial Blood Partial Pressure CO2 41 mmHg 40 mmHg Arterial Blood Partial Pressure O2 112 mmHg 104 mmHg Arterial Blood Oxygen Content 11.1 Vol % 13.5 Vol % Arterial Blood Carboxyhemoglobin 1.3 % 1.1 % Arterial Blood Methemoglobin 0.9 % 0.8 % Blood Gas Hemoglobin 8.1 G/DL 9.9 G/DL Oxygen Delivery Device VENTILATOR VENTILATOR Blood Gas Ventilator Setting BILEVEL APRV Blood Gas Inspired Oxygen 55 % 50 % Medical Decision Making Impression and Plan Impression: 1. Stable neurologic exam. Plan: He is tolerating decreased sedation a little better this week. Continue to try to extend sedation vacation and diminished ventilatory support. Discussed with family in the room today. Bonifacio Saldaña MD Feb 25, 2018 13:01
[2018-02-25] MEDS: QUEtiapine FUMARATE 25 MG TAB PO SCH ×2 (13:31→22:19)
[2018-02-25] MEDS: fentaNYL DRIP 250 ML IV PRN (13:43)
[2018-02-25] MEDS: ACETAMINOPHEN 650 MG/20.3 ML UDC PO PRN ×2 (16:01→22:29)
[2018-02-25] MEDS: REMOVE OLD LIDOCAINE PATCH T-DERMAL SCH (22:18)
[2018-02-26] VITALS (19 sets, daily range): BP systolic 106–157; BP diastolic 38–87; PULSE 58–98; RESP 10–21; TEMP 99.8–103.1; O2SAT 0–99
[2018-02-26] MEDS: PROPOFOL 1000 MG/100 ML INJ 100 ML IV PRN (02:57)
[2018-02-26] MEDS: CHLORHEXIDINE GLUCONATE 2 % 1 PACK (2 CLOTHS) TOP SCH (03:12)
[2018-02-26 05:28] LABS: AUTOMATED NEUTROPHIL # 8.4 TH/MM3 (1.8-7.7); BASOPHIL # 0.1 TH/MM3 (0-0.2); BASOPHIL % 0.4 % (0.0-2.0); EOSINOPHIL # 0.5 TH/MM3 (0-0.4); EOSINOPHIL % 4.3 % (0.0-4.0); HEMATOCRIT 24.9 % (39.0-51.0); HEMOGLOBIN 8.4 GM/DL (13.0-17.0); LYMPH % 13.5 % (9.0-44.0); LYMPHOCYTE # 1.6 TH/MM3 (1.0-4.8); MEAN CELL VOLUME 86.3 FL (80.0-100.0); MEAN CORPUSCULAR HGB CONC 33.6 % (32.0-36.0); MEAN PLATELET VOLUME 7.9 FL (7.0-11.0); MONO % 10.5 % (0.0-8.0); MONOCYTE # 1.2 TH/MM3 (0-0.9); NEUT % 71.3 % (16.0-70.0); PLATELET COUNT 335 TH/MM3 (150-450); RED BLOOD COUNT 2.88 MIL/MM3 (4.50-5.90); RED CELL DISTRIBUTION WIDTH 14.1 % (11.6-17.2); WHITE BLOOD COUNT 11.8 TH/MM3 (4.0-11.0)
[2018-02-26] MEDS: QUEtiapine FUMARATE 25 MG TAB PO SCH ×3 (05:36→21:02)
[2018-02-26] MEDS: METHOCARBAMOL 500 MG TAB PO SCH ×3 (05:36→21:02)
[2018-02-26 05:47] LABS: BICARBONATE 29.6 MEQ/L (21.0-32.0); CALCIUM 8.4 MG/DL (8.5-10.1); CREATININE 0.58 MG/DL (0.60-1.30)
[2018-02-26] MEDS: INSULIN NovoLIN REGULAR SUPPLEMENTAL SCALE SQ SCH ×4 (06:00→17:45)
[2018-02-26] MEDS: METOPROLOL TARTRATE 5 MG/5 ML VIAL IV PUSH SCH ×5 (06:45→23:20)
[2018-02-26] MEDS: CHLORHEXIDINE 0.12% (ORAL KIT) 15 ML CUP MT SCH ×2 (08:00→19:42)
[2018-02-26] MEDS: FAMOTIDINE 20 MG TAB PO SCH ×2 (08:18→21:01)
[2018-02-26] MEDS: ENOXAPARIN SODIUM 30 MG/0.3 ML SYRINGE SQ SCH ×2 (08:18→21:01)
[2018-02-26] MEDS: LIDOCAINE HCL 5% PATCH T-DERMAL SCH (08:18)
[2018-02-26] MEDS: INSULIN DETEMIR 100 UNITS/ML VIAL SQ SCH ×2 (08:18→21:01)
[2018-02-26] MEDS: VALPROIC ACID SYRUP 250 MG/5 ML UDC PO SCH ×3 (08:18→17:44)
[2018-02-26] MEDS: ARTIFICIAL TEARS OPTH OINT 3.5 APPLIC/3.5 GM TUBO EACH EYE SCH ×2 (08:19→21:03)
[2018-02-26] MEDS: BACITRACIN TOP OINT 15 GM TUBE TOPICAL SCH ×2 (08:19→21:02)
[2018-02-26] MEDS: DOCUSATE SODIUM 50 MG/SENNA 8.6 MG TAB PO SCH ×2 (08:19→21:00)
[2018-02-26] MEDS: MAGNESIUM HYDROXIDE SUSP 30 ML CUP PO SCH ×2 (08:19→21:00)
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
[2018-02-26] MEDS ORDERED: fentaNYL DRIP 250 ML IV PRN (10:15)
[2018-02-26] MEDS ORDERED: HYOSCYAMINE SOLN 0.125 MG/ML 15 ML BTL PO PRN (10:15)
[2018-02-26] MEDS ORDERED: RASS Change Order XX ONE (10:45)
[2018-02-26] MEDS: ACETAMINOPHEN 650 MG/20.3 ML UDC PO PRN ×2 (14:37→21:04)
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
[2018-02-26] MEDS: REMOVE OLD LIDOCAINE PATCH T-DERMAL SCH (21:02)
[2018-02-27] VITALS (14 sets, daily range): BP systolic 105–137; BP diastolic 57–68; PULSE 68–114; RESP 15–20; TEMP 100–101.8; O2SAT 94–100
[2018-02-27] MEDS: INSULIN NovoLIN REGULAR SUPPLEMENTAL SCALE SQ SCH ×3 (01:07→12:00)
[2018-02-27] MEDS: ACETAMINOPHEN 650 MG/20.3 ML UDC PO PRN ×2 (02:17→08:14)
[2018-02-27] MEDS: CHLORHEXIDINE GLUCONATE 2 % 1 PACK (2 CLOTHS) TOP SCH (03:41)
[2018-02-27 04:51] LABS: AUTOMATED NEUTROPHIL # 10.1 TH/MM3 (1.8-7.7); BASOPHIL % 0.2 % (0.0-2.0); EOSINOPHIL # 0.4 TH/MM3 (0-0.4); EOSINOPHIL % 2.9 % (0.0-4.0); HEMATOCRIT 24.4 % (39.0-51.0); LYMPH % 8.5 % (9.0-44.0); LYMPHOCYTE # 1.1 TH/MM3 (1.0-4.8); MEAN CORPUSCULAR HEMOGLOBIN 28.7 PG (27.0-34.0); MONO % 9.4 % (0.0-8.0); MONOCYTE # 1.2 TH/MM3 (0-0.9); PLATELET COUNT 307 TH/MM3 (150-450); RED CELL DISTRIBUTION WIDTH 14.3 % (11.6-17.2); WHITE BLOOD COUNT 12.8 TH/MM3 (4.0-11.0)
[2018-02-27 05:17] LABS: ALBUMIN 2.1 GM/DL (3.4-5.0); AST (GOT) 104 U/L (15-37); BICARBONATE 30.8 MEQ/L (21.0-32.0); BLOOD UREA NITROGEN 12 MG/DL (7-18); CALCIUM 8.5 MG/DL (8.5-10.1); CHLORIDE 106 MEQ/L (98-107); CREATININE 0.62 MG/DL (0.60-1.30); GLOMERULAR FILTRATION RATE 135 ML/MIN (>89); GLUCOSE,RANDOM 134 MG/DL (74-106); SODIUM (NA) 144 MEQ/L (136-145)
[2018-02-27 05:18] LABS: ALT (GPT) 123 U/L (12-78)
[2018-02-27 05:20] LABS: ALKALINE PHOSPHATASE 401 U/L (45-117); TOTAL BILIRUBIN ADULT 0.7 MG/DL (0.2-1.0); TOTAL PROTEIN 6.5 GM/DL (6.4-8.2)
[2018-02-27] MEDS: QUEtiapine FUMARATE 25 MG TAB PO SCH ×2 (05:23→15:00)
[2018-02-27] MEDS: METHOCARBAMOL 500 MG TAB PO SCH ×2 (05:23→15:00)
[2018-02-27] MEDS: METOPROLOL TARTRATE 5 MG/5 ML VIAL IV PUSH SCH ×2 (05:23→12:00)
--- NOTE | 2018-02-27 05:25 | RADRPT ---
EXAM DATE/TIME: 02/27/2018 04:24 [facility] COMPARISON: CHEST SINGLE AP, February 23, 2018, 5:25. INDICATIONS : Shortness of breath MEDICAL HISTORY : ID. Diabetes. SURGICAL HISTORY : Coronary artery stent ENCOUNTER: Subsequent ACUITY: 3 weeks PAIN SCORE: Non-responsive. LOCATION: Bilateral chest FINDINGS: Interval development of diffuse patchy infiltrates in the left mid and stable consolidation in the le ft lower lung. Stable patchy infiltrates in the medial right lung. CONCLUSION: Interval development of patchy infiltrates in the left midlung. Stable infiltrates right medial and left lower lobe. Timmy Horton MD on February 27, 2018 at 5:21 Board Certified Radiologist. This report was verified electronically.
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
[2018-02-27] MEDS: CHLORHEXIDINE 0.12% (ORAL KIT) 15 ML CUP MT SCH (07:40)
[2018-02-27] MEDS: VALPROIC ACID SYRUP 250 MG/5 ML UDC PO SCH ×2 (08:14→12:00)
[2018-02-27] MEDS: ARTIFICIAL TEARS OPTH OINT 3.5 APPLIC/3.5 GM TUBO EACH EYE SCH (08:14)
[2018-02-27] MEDS: FAMOTIDINE 20 MG TAB PO SCH (08:14)
[2018-02-27] MEDS: INSULIN DETEMIR 100 UNITS/ML VIAL SQ SCH (08:15)
[2018-02-27] MEDS: ENOXAPARIN SODIUM 30 MG/0.3 ML SYRINGE SQ SCH (08:15)
[2018-02-27] MEDS: DOCUSATE SODIUM 50 MG/SENNA 8.6 MG TAB PO SCH (08:16)
[2018-02-27] MEDS: BACITRACIN TOP OINT 15 GM TUBE TOPICAL SCH (08:16)
[2018-02-27] MEDS: LIDOCAINE HCL 5% PATCH T-DERMAL SCH (08:16)
[2018-02-27] MEDS: MAGNESIUM HYDROXIDE SUSP 30 ML CUP PO SCH (08:17)
[2018-02-27] MEDS ORDERED: ARTI3.5O EACH EYE (14:29)
[2018-02-27] MEDS ORDERED: LEVEMIR SQ (14:29)
[2018-02-27] MEDS ORDERED: ACET650S PO (14:29)
[2018-02-27] MEDS ORDERED: SERO25TA PO (14:29)
[2018-02-27] MEDS ORDERED: Dextrose 50% In Wat (Vial) Inj IV PUSH (14:29)
[2018-02-27] MEDS ORDERED: FAMO20TA2 PO (14:29)
[2018-02-27] MEDS ORDERED: METH500T3 PO (14:29)
[2018-02-27] MEDS ORDERED: ONDA4INJ2 IV PUSH (14:29)
[2018-02-27] MEDS ORDERED: HYDR20IN4 IV PUSH (14:29)
[2018-02-27] MEDS ORDERED: METO5INJ13 IV PUSH (14:29)
[2018-02-27] MEDS ORDERED: Albuterol-Ipratropium Neb NEB (14:29)
[2018-02-27] MEDS ORDERED: NOVORP2 SQ (14:29)
[2018-02-27] MEDS ORDERED: ENOX30P SQ (14:29)
[2018-02-27] MEDS ORDERED: OXYC-392 PO (14:29)
[2018-02-27] MEDS ORDERED: LIDO1ADH4 T-DERMAL (14:29)
[2018-02-27] MEDS ORDERED: ENALAPRILAT IV PUSH (14:29)
[2018-02-27] MEDS ORDERED: MAGN30S PO (14:29)
[2018-02-27] MEDS ORDERED: QC B500O TOPICAL (14:29)
[2018-02-27] MEDS ORDERED: HYOS0.1231 PO (14:29)
[2018-02-27] MEDS ORDERED: PERI PO (14:29)
[2018-02-27] MEDS ORDERED: VALP250UDC PO (14:29)
[2018-02-27] MEDS ORDERED: Lactulose Liq PO (14:29)
[2018-02-27] MEDS ORDERED: Chlorhexidine 0.12% Liq MT (14:29)
[2018-02-27] MEDS ORDERED: Glucagon Inj OTHER (14:29)
[2018-02-27] MEDS ORDERED: FENT0.05 IV (14:29)
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
== END 2018-02-27 16:31 | DRG 3 ==
LOC: NEPI 17:44 → NEDA 19:00 → EDBD 19:00 → N03A 19:02
PROVIDERS: ADMIT Surgery; ATTEND Surgery
PROC: 5A1955Z Respiratory Ventilation, Greater than 96 Consecutive Hours (ICD-10-PCS; principal; 2018-02-03)
PROC: 0BCM8ZZ Extirpation of Matter from Bilateral Lungs, Via Natural or Artificial Opening Endoscopic (ICD-10-PCS; 2018-02-09)
PROC: 04HY32Z Insertion of Monitoring Device into Lower Artery, Percutaneous Approach (ICD-10-PCS; 2018-02-19)
PROC: 0B113F4 Bypass Trachea to Cutaneous with Tracheostomy Device, Percutaneous Approach (ICD-10-PCS; 2018-02-23)
PROC: 0BJ08ZZ Inspection of Tracheobronchial Tree, Via Natural or Artificial Opening Endoscopic (ICD-10-PCS; 2018-02-23)
PROC: 0DH63UZ Insertion of Feeding Device into Stomach, Percutaneous Approach (ICD-10-PCS; 2018-02-24)
DX: S27.0XXA Traumatic pneumothorax, initial encounter (principal); J69.0 Pneumonitis due to inhalation of food and vomit; G93.41 Metabolic encephalopathy; J15.6 Pneumonia due to other Gram-negative bacteria; L89.152 Pressure ulcer of sacral region, stage 2; R13.10 Dysphagia, unspecified; F02.81 Dementia in other diseases classified elsewhere, unspecified severity, with behavioral disturbance; S27.322A Contusion of lung, bilateral, initial encounter; J96.00 Acute respiratory failure, unspecified whether with hypoxia or hypercapnia; J44.0 Chronic obstructive pulmonary disease with (acute) lower respiratory infection; S22.42XA Multiple fractures of ribs, left side, initial encounter for closed fracture; S02.40EA Zygomatic fracture, right side, initial encounter for closed fracture; S02.40CA Maxillary fracture, right side, initial encounter for closed fracture; S02.80XA Fracture of other specified skull and facial bones, unspecified side, initial encounter for closed fracture; T79.7XXA Traumatic subcutaneous emphysema, initial encounter; F17.210 Nicotine dependence, cigarettes, uncomplicated; R45.1 Restlessness and agitation; S02.2XXA Fracture of nasal bones, initial encounter for closed fracture; L40.4 Guttate psoriasis; D64.9 Anemia, unspecified; E11.9 Type 2 diabetes mellitus without complications; E78.00 Pure hypercholesterolemia, unspecified; E83.39 Other disorders of phosphorus metabolism; E87.6 Hypokalemia; I10 Essential (primary) hypertension; I25.10 Atherosclerotic heart disease of native coronary artery without angina pectoris; I65.22 Occlusion and stenosis of left carotid artery; J32.0 Chronic maxillary sinusitis; K21.9 Gastro-esophageal reflux disease without esophagitis; S00.81XA Abrasion of other part of head, initial encounter; R00.1 Bradycardia, unspecified; R40.2421 Glasgow coma scale score 9-12, in the field [EMT or ambulance]; S06.0X0A Concussion without loss of consciousness, initial encounter; V29.9XXA Motorcycle rider (driver) (passenger) injured in unspecified traffic accident, initial encounter; Y92.410 Unspecified street and highway as the place of occurrence of the external cause; I25.2 Old myocardial infarction
CPT/HCPCS: 31600; 31624; 36556; 36600; 36620; 70450; 70486; 71045; 71260; 72125; 72170; 74177; 76937; 80048; 80053; 80202; 82140; 82805; 82948; 83735; 84100; 84132; 84155; 85007; 85025; 85027; 85610; 85730; 86403; 86850; 86900; 86901; 87015; 87040; 87070; 87077; 87086; 87102; 87116; 87147; 87184; 87186; 87205; 87206; 87493; 87641; 93005; 93306; 93880; 94002; 94003; 94640; 94664; 96374; 96375; 99291; A0431-QM-SH; A0436-QM-SH; G0390; J0330; J0692; J0696; J1650; J1815; J1940; J2060; J2250; J2543; J3010; J3370; J3475; J3480; J7040; J7050; J7120; Q9967